=== PATIENT | female | born 1955 | race African-American/Black ===

== ENCOUNTER → 2017-07-27 | Outpatient (CLI) | payer BC, MEDICARE ==
[2015-06-24 10:45] VITALS: BP 122/52
[~2017-07-27] MED LIST: ALPR0.25 PO; ESTR1TAB15 PO; FLUO10CA13 PO; FLUT1DIS3 IH; TIOT18CA IH; TRIA1TAB2 PO
--- NOTE | 2017-07-27 15:46 | KCIC ---
Indication: Increasing shortness of breath. Time of exam 3:24 PM No prior studies are available for comparison. FINDINGS: The heart size is normal. The lungs are clear. No pleural effusion or pneumothorax is identified. The pulmonary vascularity is normal. IMPRESSION: No acute abnormality detected. Electronically signed by: Constantino Anne MD (07/27/2017 3:42 PM) [id number]
== END | disposition home or self-care (01) ==
LOC: KCIC 15:16
PROVIDERS: ATTEND Internal Medicine Critical Care Medicine
DX: J44.9 Chronic obstructive pulmonary disease, unspecified (principal); I50.9 Heart failure, unspecified; R60.9 Edema, unspecified
CPT/HCPCS: 71020

== ENCOUNTER → 2017-10-18 | Outpatient (CLI) | payer BC, MEDICARE ==
[2017-09-22 10:38] VITALS: BP 137/85
[~2017-10-18] MED LIST changes: +AMOX1TAB61 PO; +HYDR-971 PO; +SUCR1TAB PO
--- NOTE | 2017-10-19 10:36 | SLEEP ---
DATE OF STUDY: 10/18/2017 PROCEDURE: Sleep study. ATTENDING PHYSICIAN: Dr. Ruiz The patient is a 61-year-old who weighs 298 pounds with a BMI of 45. The patient had a sleep study performed 8 years ago and was positive for LISA and has been on CPAP and 2 liters of oxygen at night. The patient gained 46 pounds since the last study and another split night study was requested by primary care physician. During the night of study, the patient spent 414 minutes in bed and slept for 313 minutes with a sleep efficiency of 76%. Sleep latency was 21 minutes with a REM latency of 224 minutes. Overall, sleep architecture showed normal stage I sleep, increased stage II sleep, normal slow wave and reduced REM sleep. During the initial diagnostic portion of the study, the patient slept for 123 minutes. During this time, there were 20 obstructive apneas, no mixed or central apneas and there were 85 hypopneas. The patient's apnea-hypopnea index was 51 per hour, supine index 80 per hour and REM sleep was not seen during the diagnostic portion. EKG monitoring revealed normal sinus rhythm, average heart rate was 68 beats per minute. No sustained arrhythmias were observed. No PLM seen. Review of nocturnal oximetry study revealed a mean oxygen saturation of 87% with the lowest of 67%. 69% of time oxygen saturation remained between 80% and 89% and another 30% of time between 70 and 79%. The patient met the criteria for CPAP initiation. It was started at 7 cm water and titrated up to 15 cm water. At the final pressure, the patient slept for 60 minutes. The patient had supine sleep throughout and REM sleep as well. The patient's AHI was reduced to 0 per hour. Oxygen saturations remained above 88% with desaturation in mid 80's during REM part of sleep at the final pressure, but towards the end, the oxygen saturations remained above 90% when patient was out of REM sleep.. The patient used a small size nasal pillow. IMPRESSION: 1. Severe sleep apnea-hypopnea syndrome at an AHI of 51 per hour. 2. Nocturnal hypoxia secondary to obstructive sleep apnea, improved with CPAP. 3. No significant PLMS seen. RECOMMENDATIONS: 1. CPAP at 15 cm water completely eliminated the patient's sleep apnea and should be used on a nightly basis. 2. Follow up in 4-6 weeks to assess compliance with CPAP and to document clinical improvement. 3. Weight loss was strongly advised. 4. Avoid SANITARY AIDE depressants. 5. Caution regarding driving until symptoms of sleep apnea resolve with the use of CPAP. 6. Would recommend having a nocturnal oximetry study at the therapeutic pressure of 15 cm water to assess the need for supplemental oxygen. The patient was noticed to have desaturation during REM sleep even at the final pressure. THOMPSON RINCON MD DR: ADDY/cj JOB#: [id number] / [id number] FILEMON Oconnor
== END | disposition home or self-care (01) ==
LOC: SLPLAB 18:32
PROVIDERS: ATTEND Internal Medicine Critical Care Medicine
DX: G47.33 Obstructive sleep apnea (adult) (pediatric) (principal)
CPT/HCPCS: 95810

== ENCOUNTER 2018-01-14 17:12 | Emergency (ER) | payer BC ==
[2018-01-14 18:17] LABS: ADD MAN DIFF? NO
[2018-01-14 18:18] LABS: BASO # 0.1 x10^3/uL (0.0-0.2); BASO % 1 % (0-3); EOS # 0.4 x10^3/uL (0.0-0.7); EOS % 6 % (0-3); HEMOGLOBIN 14.1 g/dL (12.0-15.5); LYMPH # 1.5 x10^3/uL (1.0-4.8); LYMPH % 21 % (24-48); MEAN CORPUSCULAR HEMOGLOBIN 30 pg (25-35); MEAN CORPUSCULAR HGB CONC 34 g/dL (31-37); MEAN CORPUSCULAR VOLUME 90 fL (79-100); MONO # 0.4 x10^3/uL (0.0-1.1); MONO % 6 % (0-9); NEUT # 4.8 x10^3uL (1.8-7.7); NEUT % 66 % (31-73); PLATELET COUNT 236 x10^3/uL (140-400); RED BLOOD COUNT 4.66 x10^6/uL (3.50-5.40); RED CELL DISTRIBUTION WIDTH 13.3 % (11.5-14.5); WHITE BLOOD COUNT 7.3 x10^3/uL (4.0-11.0)
[2018-01-14 18:20] LABS: BILIRUBIN,URINE NEGATIVE (NEG); CLARITY,URINE CLEAR; COLOR,URINE YELLOW; GLUCOSE,URINE NEGATIVE (NEG); NITRITE,URINE NEGATIVE (NEG); PH,URINE 5.5; PROTEIN,URINE NEGATIVE (NEG-TRACE); UROBILINOGEN,URINE 0.2 mg/dL (0.2 mg/dL)
[2018-01-14 18:29] LABS: BACTERIA,URINE 0 /HPF (0-FEW); RBC,URINE 0 /HPF (0-2); SQUAMOUS EPITHELIAL CELL,UR FEW /LPF; WBC,URINE 0 /HPF (0-4)
[2018-01-14] MEDS ORDERED: CONTRAST GIVEN MC (18:30)
[2018-01-14 18:36] LABS: ANION GAP 7 (6-14); BLOOD UREA NITROGEN 13 mg/dL (7-20); CALCIUM 8.8 mg/dL (8.5-10.1); CARBON DIOXIDE 30 mmol/L (21-32); CHLORIDE 106 mmol/L (98-107); CREATININE 0.8 mg/dL (0.6-1.0); GFR 87.7; GLUCOSE 120 mg/dL (70-99); POTASSIUM 4.3 mmol/L (3.5-5.1); SODIUM 143 mmol/L (136-145)
[2018-01-14 18:42] LABS: ALK PHOS 87 U/L (46-116); ALT (SGPT) 17 U/L (14-59); AST (SGOT) 13 U/L (15-37); DIRECT BILIRUBIN 0.1 mg/dL (0.0-0.2); LIPASE 84 U/L (73-393); TOTAL BILIRUBIN 0.4 mg/dL (0.2-1.0); TOTAL PROTEIN 6.4 g/dL (6.4-8.2)
[2018-01-14 18:45] LABS: TROPONINI < 0.017 ng/mL (0.000-0.055)
[2018-01-14] MEDS: 0.9 % SODIUM CHLORIDE 10 ML DISP.SYRIN. IV (18:47)
[2018-01-14] MEDS: IV NORMAL SALINE 1000ML BAG 1,000 ML IV (18:47)
[2018-01-14] MEDS: ONDANSETRON PF 4 MG/2 ML VIAL. IV (18:47)
[2018-01-14] MEDS: MORPHINE SULFATE 4 MG/ML DISP.SYRIN. IV/SQ (18:49)
[2018-01-14] MEDS: IOHEXOL 300 MG/ML 100ML VIAL. IV (19:19)
== END 2018-01-14 20:27 | disposition home or self-care (01) ==
LOC: ER 17:12
DX: R19.7 Diarrhea, unspecified (principal); R10.32 Left lower quadrant pain; R50.9 Fever, unspecified; R11.0 Nausea; F41.9 Anxiety disorder, unspecified; J44.9 Chronic obstructive pulmonary disease, unspecified; H40.9 Unspecified glaucoma; E78.00 Pure hypercholesterolemia, unspecified; I10 Essential (primary) hypertension; F17.210 Nicotine dependence, cigarettes, uncomplicated; Z90.710 Acquired absence of both cervix and uterus
CPT/HCPCS: 36415; 74177; 80048; 80076; 81001; 83690; 84484; 85025; 93005; 96361; 96374; 96375; 99285-25; J2060; J2270; J2405; J7030; Q9967

== ENCOUNTER 2019-04-26 17:47 | Emergency (ER) | payer BC ==
[~2019-04-26] VITALS: Ht 177.8 cm; Wt 129.3 kg
[~2019-04-26 17:47] MED LIST changes: +DICY10CA3 PO; +DIPH1TAB PO; +HYDR-3164 PO; -HYDR-971 PO; +ONDA4TAB10 PO
[2019-04-26 18:07] VITALS: BP 175/98
--- NOTE | 2019-04-26 18:25 | PHYS DOC ---
Past Medical History Past Medical History: Anxiety, COPD, Gallstones, Glaucoma, High Cholesterol, Hypertension, Other Additional Past Medical Histor: OBESITY (MACY DARBY APRN) Past Surgical History: Hysterectomy, Tonsillectomy (MACY DARBY APRN) Alcohol Use: Rarely Drug Use: None (MACY DARBY APRN) Adult General Chief Complaint Chief Complaint: LOWER EXT PAIN HPI HPI Patient is a 63 year old female with history of COPD, on oxygen 2 L, hypertension, high cholesterol, who presents to the ED today complaining of bilateral lower extremity pain, swelling, redness, symptoms began a week ago, no known injury. Patient states she was sent by urgent care ED to rule out DVT. Denies any fever. Denies any chest pain, denies any recent hospitalization, denies any surgery, denies any long air travel or car travel, denies any new shortness of breath. Denies any personal family history of DVTs. (MACY DARBY APRN) Review of Systems Review of Systems Constitutional: Denies fever or chills [] Eyes: Denies change in visual acuity, redness, or eye pain [] HENT: Denies nasal congestion or sore throat [] Respiratory: Denies cough or shortness of breath [] Cardiovascular: No additional information not addressed in HPI [] GI: Denies abdominal pain, nausea, vomiting, bloody stools or diarrhea [] : Denies dysuria or hematuria [] Musculoskeletal: Reports bilateral lower extremity swelling, redness. Neurologic: Denies headache, focal weakness or sensory changes [] All other systems were reviewed and found to be within normal limits, except as documented in this note. (MACY DARBY APRN) Allergies Allergies Allergies Coded Allergies Type Severity Reaction Last Updated Verified No Known Drug Allergies 09/20/17 No (MARYCHUY LOJA DO) Physical Exam Physical Exam Constitutional: Well developed, well nourished, no acute distress, non-toxic appearance. [] HENT: Normocephalic, atraumatic, bilateral external ears normal, oropharynx moist, no oral exudates, nose normal. [] Eyes: PERRLA, EOMI, conjunctiva normal, no discharge. [] Neck: Normal range of motion, no tenderness, supple, no stridor. [] Cardiovascular:Heart rate regular rhythm, no murmur [] Lungs & Thorax: Bilateral breath sounds clear to auscultation [] Abdomen: Bowel sounds normal, soft, no tenderness, no masses, no pulsatile masses. [] Skin: Warm, dry, no erythema, no rash. [] Back: No tenderness, no CVA tenderness. [] Extremities: No tenderness, no cyanosis, no clubbing, ROM intact, overweight patient, +1 edema noted to bilateral lower extremities, no calf tenderness bilaterally, negative Homans sign bilaterally, trace cellulitis noted on the shins bilaterally starting midway shins on both lower extremities. +2 bilateral pedal pulses. Neurologic: Alert and oriented X 3, normal motor function, normal sensory function, no focal deficits noted. [] Psychologic: Affect normal, judgement normal, mood normal. [] (MACY DARBY APRN) Current Patient Data Vital Signs Vital Signs Date Time Temp Pulse Resp B/P (MAP) Pulse Ox O2 Delivery O2 Flow Rate FiO2 04/26/19 18:07 98.2 74 20 175/98 (123) 93 Nasal Cannula 2.0 98.2 (MARYCHUY LOJA DO) EKG EKG [] (MACY DARBY APRN) Radiology/Procedures Radiology/Procedures [] (MACY DARBY APRN) Course & Med Decision Making Course & Med Decision Making Pertinent Labs and Imaging studies reviewed. (See chart for details) This is a 63-year-old female patient was sent to the ED today for cellulitis and DVT rule out. Tetanus up-to-date, bilateral lower extremities venous Doppler preliminary read is negative. Discharged on clindamycin. Follow-up with PCP in 1-2 weeks. Encouraged to elevate the extremities. (MACY DARBY APRN) Dragon Disclaimer Dragon Disclaimer This electronic medical record was generated, in whole or in part, using a voice recognition dictation system. (MACY DARBY APRN) Departure Departure Impression: Primary Impression: Cellulitis of both lower extremities Additional Impression: Edema, lower extremity Disposition: 01 HOME, SELF-CARE Condition: STABLE Referrals: FILEMON XAVIER (PCP) Follow-up in 1-2 weeks Patient Instructions: Cellulitis, [id number], Edema, [id number] Additional Instructions: You were evaluated in the emergency room, your venous Doppler was negative for DVT/blood clot. You have cellulitis to bilateral lower extremities. We put you on antibiotics, ensure you complete them. Try and elevate your extremities. Scripts Clindamycin Hcl (CLINDAMYCIN HCL) 150 Mg Capsule 3 CAP PO TID, #90 CAP Prov: MERCEDDILEEPMACY APRN 04/26/19 Attending Signature Attending Signature I have reviewed the PA/ENTREPRENEURSHIP PROGRAM DIRECTOR's note and plan of care. I was available for consultation as needed during the patient's visit in the emergency department. I agree with the clinical impression, plan, and disposition. (MARYCHUY LOJA DO) Problem Qualifiers MACY DARBY APRN Apr 26, 2019 18:25 MARYCHUY LOJA DO Apr 26, 2019 22:21
[2019-04-26] MEDS ORDERED: CLIN150C14 PO (19:05)
--- NOTE | 2019-04-26 19:34 | RAD ---
Bilateral lower extremity venous doppler ultrasound History: Bilateral lower extremity pain and burning sensation, redness Comparison: None Findings: Multiple grayscale, color, and duplex spectral analysis sonographic images were acquired of the bilateral lower extremity veins to evaluate for the presence of DVT. There is normal phasicity. Normal compression, color-flow, and augmentation is demonstrated from the bilateral common femoral to the popliteal veins. There is normal color flow of the proximal greater saphenous and profunda femoris veins. There is normal color flow of segments of the calf veins. There is soft tissue edema. Impression: 1. There is no evidence of deep venous thrombosis from the bilateral common femoral to the popliteal veins. Electronically signed by: Maciej Staley MD (04/26/2019 7:31 PM) [facility]
== END 2019-04-26 19:15 | disposition home or self-care (01) ==
LOC: ER 17:47
DX: L03.116 Cellulitis of left lower limb (principal); L03.115 Cellulitis of right lower limb; R60.0 Localized edema; F41.9 Anxiety disorder, unspecified; J44.9 Chronic obstructive pulmonary disease, unspecified; E78.00 Pure hypercholesterolemia, unspecified; I10 Essential (primary) hypertension; E66.9 Obesity, unspecified; Z68.41 Body mass index [BMI] 40.0-44.9, adult; Z90.710 Acquired absence of both cervix and uterus; Z90.89 Acquired absence of other organs
CPT/HCPCS: 93970; 99284

== ENCOUNTER 2019-08-12 20:12 | Emergency (ER) | payer BC ==
[~2019-08-12] VITALS: Ht 180.3 cm; Wt 137.1 kg
[~2019-08-12 20:12] MED LIST changes: +CLIN150C14 PO
[2019-08-12] MEDS ORDERED: IV NORMAL SALINE 500ML BAG 500 ML IV ONE (21:00)
[2019-08-12 21:09] LABS: BASO # 0.1 x10^3/uL (0.0-0.2); BASO % 1 % (0-3); EOS # 0.2 x10^3/uL (0.0-0.7); EOS % 3 % (0-3); HEMATOCRIT 43.6 % (36.0-47.0); HEMOGLOBIN 14.6 g/dL (12.0-15.5); LYMPH # 2.4 x10^3/uL (1.0-4.8); LYMPH % 35 % (24-48); MEAN CORPUSCULAR HEMOGLOBIN 30 pg (25-35); MEAN CORPUSCULAR HGB CONC 34 g/dL (31-37); MEAN CORPUSCULAR VOLUME 89 fL (79-100); MONO # 0.5 x10^3/uL (0.0-1.1); MONO % 8 % (0-9); NEUT # 3.8 x10^3/uL (1.8-7.7); NEUT % 54 % (31-73); PLATELET COUNT 269 x10^3/uL (140-400); RED BLOOD COUNT 4.92 x10^6/uL (3.50-5.40); RED CELL DISTRIBUTION WIDTH 13.1 % (11.5-14.5)
[2019-08-12 21:17] LABS: CALCIUM 9.8 mg/dL (8.5-10.1); CREATININE 1.1 mg/dL (0.6-1.0); POTASSIUM 3.9 mmol/L (3.5-5.1)
[2019-08-12 21:23] LABS: ALBUMIN 3.4 g/dL (3.4-5.0); ALBUMIN/GLOBULIN RATIO 0.9 (1.0-1.7); TOTAL BILIRUBIN 0.5 mg/dL (0.2-1.0); TOTAL PROTEIN 7.4 g/dL (6.4-8.2)
[2019-08-12 21:52] LABS: BILIRUBIN,URINE NEGATIVE (NEG); CLARITY,URINE CLEAR; COLOR,URINE YELLOW; NITRITE,URINE NEGATIVE (NEG); PH,URINE 5.5; PROTEIN,URINE NEGATIVE (NEG-TRACE); UROBILINOGEN,URINE 0.2 mg/dL (0.2 mg/dL)
[2019-08-12 22:00] VITALS: BP 134/62
[2019-08-12 22:04] LABS: BACTERIA,URINE FEW /HPF (0-FEW); RBC,URINE 0 /HPF (0-2); SQUAMOUS EPITHELIAL CELL,UR OCC /LPF; WBC,URINE OCC /HPF (0-4)
--- NOTE | 2019-08-12 22:18 | PHYS DOC ---
Past Medical History Past Medical History: Anxiety, CHF, COPD, Gallstones, Glaucoma, High Cholesterol, Hypertension, Other Additional Past Medical Histor: OBESITY Past Surgical History: Hysterectomy, Tonsillectomy Alcohol Use: Rarely Drug Use: None Adult General Chief Complaint Chief Complaint: HYPOTENSION HPI HPI 63-year-old female with multiple medical problems presents with a several-day history of generalized weakness. She states her blood pressure was low at home tonight. She denies any fever chills or sweats. She's had no nausea or vomiting. She denies any polyuria or polydipsia. She denies any chest pain shortness of breath or dyspnea on exertion. She denies any headache or lateralizing neurologic weakness. She states that she does not exacerbate her symptoms by getting up quickly.[] Review of Systems Review of Systems Constitutional: Reports feeling weak, Denies fever or chills [] Eyes: Denies change in visual acuity, redness, or eye pain [] HENT: Denies nasal congestion or sore throat [] Respiratory: Denies cough or shortness of breath [] Cardiovascular: No additional information not addressed in HPI [] GI: Denies abdominal pain, nausea, vomiting, bloody stools or diarrhea [] : Denies dysuria or hematuria [] Musculoskeletal: Denies back pain or joint pain [] Integument: Denies rash or skin lesions [] Neurologic: Denies headache, focal weakness or sensory changes [] Endocrine: Denies polyuria or polydipsia [] All other systems were reviewed and found to be within normal limits, except as documented in this note. Current Medications Current Medications Current Medications Medications (Trade) Dose Ordered Sig/Juan Start Time Stop Time Status Last Admin Dose Admin Sodium Chloride 500 ml @ 500 mls/hr 1X ONCE 08/12/19 21:00 08/12/19 21:59 DC 08/12/19 21:08 500 MLS/HR Allergies Allergies Allergies Coded Allergies Type Severity Reaction Last Updated Verified No Known Drug Allergies 09/20/17 No Physical Exam Physical Exam Constitutional: Well developed, well nourished, no acute distress, non-toxic appearance. [] HENT: Normocephalic, atraumatic, bilateral external ears normal, oropharynx moist, no oral exudates, nose normal. [] Eyes: PERRLA, EOMI, conjunctiva normal, no discharge. [] Neck: Normal range of motion, no tenderness, supple, no stridor. [] Cardiovascular:Heart rate regular rhythm, no murmur [] Lungs & Thorax: Bilateral breath sounds clear to auscultation [] Abdomen: Bowel sounds normal, soft, no tenderness, no masses, no pulsatile masses. [] Skin: Warm, dry, no erythema, no rash. [] Back: No tenderness, no CVA tenderness. [] Extremities: No tenderness, no cyanosis, no clubbing, ROM intact, no edema. [] Neurologic: Alert and oriented X 3, normal motor function, normal sensory function, no focal deficits noted. [] Psychologic: Affect normal, judgement normal, mood normal. [] Current Patient Data Vital Signs Vital Signs Date Time Temp Pulse Resp B/P (MAP) Pulse Ox O2 Delivery O2 Flow Rate FiO2 08/12/19 21:30 61 119/59 (79) 99 Nasal Cannula 2.0 08/12/19 20:15 98.2 20 98.2 Lab Values Laboratory Tests Test 08/12/19 21:00 08/12/19 21:40 White Blood Count 7.0 x10^3/uL (4.0-11.0) Red Blood Count 4.92 x10^6/uL (3.50-5.40) Hemoglobin 14.6 g/dL (12.0-15.5) Hematocrit 43.6 % (36.0-47.0) Mean Corpuscular Volume 89 fL (79-100) Mean Corpuscular Hemoglobin 30 pg (25-35) Mean Corpuscular Hemoglobin Concent 34 g/dL (31-37) Red Cell Distribution Width 13.1 % (11.5-14.5) Platelet Count 269 x10^3/uL (140-400) Neutrophils (%) (Auto) 54 % (31-73) Lymphocytes (%) (Auto) 35 % (24-48) Monocytes (%) (Auto) 8 % (0-9) Eosinophils (%) (Auto) 3 % (0-3) Basophils (%) (Auto) 1 % (0-3) Neutrophils # (Auto) 3.8 x10^3/uL (1.8-7.7) Lymphocytes # (Auto) 2.4 x10^3/uL (1.0-4.8) Monocytes # (Auto) 0.5 x10^3/uL (0.0-1.1) Eosinophils # (Auto) 0.2 x10^3/uL (0.0-0.7) Basophils # (Auto) 0.1 x10^3/uL (0.0-0.2) Sodium Level 140 mmol/L (136-145) Potassium Level 3.9 mmol/L (3.5-5.1) Chloride Level 103 mmol/L (98-107) Carbon Dioxide Level 33 mmol/L (21-32) H Anion Gap 4 (6-14) L Blood Urea Nitrogen 23 mg/dL (7-20) H Creatinine 1.1 mg/dL (0.6-1.0) H Estimated GFR (Cockcroft-Gault) 50.0 BUN/Creatinine Ratio 21 (6-20) H Glucose Level 117 mg/dL (70-99) H Calcium Level 9.8 mg/dL (8.5-10.1) Total Bilirubin 0.5 mg/dL (0.2-1.0) Aspartate Amino Transferase (AST) 16 U/L (15-37) Alanine Aminotransferase (ALT) 18 U/L (14-59) Alkaline Phosphatase 82 U/L (46-116) Troponin I Quantitative < 0.017 ng/mL (0.000-0.055) Total Protein 7.4 g/dL (6.4-8.2) Albumin 3.4 g/dL (3.4-5.0) Albumin/Globulin Ratio 0.9 (1.0-1.7) L Urine Color Yellow Urine Clarity Clear Urine pH 5.5 Urine Specific Sears 1.010 Urine Protein Negative mg/dL (NEG-TRACE) Urine Glucose (UA) Negative mg/dL (NEG) Urine Ketones (Stick) Negative mg/dL (NEG) Urine Blood Negative (NEG) Urine Nitrite Negative (NEG) Urine Bilirubin Negative (NEG) Urine Urobilinogen Dipstick 0.2 mg/dL (0.2 mg/dL) Urine Leukocyte Esterase Negative (NEG) Urine RBC 0 /HPF (0-2) Urine WBC Occ /HPF (0-4) Urine Squamous Epithelial Cells Occ /LPF Urine Bacteria Few /HPF (0-FEW) Urine Mucus Slight /LPF Laboratory Tests 08/12/19 21:00 Laboratory Tests 08/12/19 21:00 EKG EKG EKG: Normal sinus rhythm rate of [address]-T changes[] Radiology/Procedures Radiology/Procedures [] Course & Med Decision Making Course & Med Decision Making Pertinent Labs and Imaging studies reviewed. (See chart for details) [ED course: Evaluation reveals a 63-year-old female that's generally weak. Her orthostatic blood pressures were completely normal. Her laboratory studies including a urinalysis looked great. Her EKG did not show any evidence of ischemia. I reassured the patient that I thought she would be safe for discharge home. I've encouraged her to follow with her primary care physician in the near future.] Dragon Disclaimer Dragon Disclaimer This electronic medical record was generated, in whole or in part, using a voice recognition dictation system. Departure Departure Impression: Primary Impression: Generalized weakness Disposition: 01 HOME, SELF-CARE Condition: STABLE Referrals: FILEMON XAVIER (PCP) Patient Instructions: Weakness Additional Instructions: Return to the emergency department with any new or concerning symptoms ANTONIO LI DO Aug 12, 2019 22:18
--- NOTE | 2019-08-13 06:50 | EKG ---
[facility] [address] [place] [address] Test Date: 2019-08-12 Test Time: 21:00:44 Pat Name: KRUNAL HENDERSON Department: Room: Gender: F Server Service Assistant: : 1955 Requested By: ANTONIO LI Order Number: [id number] Reading MD: Measurements Intervals [place] Rate: 62 P: IN: QRS: -2 QRSD: 84 T: 12 QT: 430 QTc: 438 Interpretive Statements ATRIAL FIBRILLATION LEFTWARD AXIS ABNORMAL ECG No previous ECG available for comparison
== END 2019-08-12 22:35 | disposition home or self-care (01) ==
LOC: ER 20:12
DX: R53.1 Weakness (principal); F41.9 Anxiety disorder, unspecified; J44.9 Chronic obstructive pulmonary disease, unspecified; I11.0 Hypertensive heart disease with heart failure; I50.9 Heart failure, unspecified; E66.9 Obesity, unspecified; Z68.41 Body mass index [BMI] 40.0-44.9, adult
CPT/HCPCS: 36415; 80053; 81001; 84484; 85025; 93005; 99285; J7040

== ENCOUNTER → 2020-02-05 | Outpatient (CLI) | payer MEDICARE ==
[2019-10-17 11:21] VITALS: BP 125/65
[~2020-02-05] MED LIST changes: +OLME40TA12 PO; +VENTOLIN HFA18 GM INH
--- NOTE | 2020-02-05 07:24 | RAD ---
Examination: Ultrasound abdomen limited HISTORY: History of right upper quadrant abdominal pain COMPARISON: None available FINDINGS: The pancreas, IVC, aorta are not well-visualized due to bowel gas. The liver length measures 20.8 cm.Echogenicity identified within the gallbladder likely cholelithiasis. The right kidney measures 12.9 cm in length. IMPRESSION: 1. Cholelithiasis. 2. Hepatomegaly. 3. Examination limited due to bowel gas. Electronically signed by: Nicola Mendiola MD (02/05/2020 7:21 AM) [id number]
== END | disposition home or self-care (01) ==
LOC: US 07:09
PROVIDERS: ATTEND Emergency Medicine
DX: K80.20 Calculus of gallbladder without cholecystitis without obstruction (principal); R16.0 Hepatomegaly, not elsewhere classified
CPT/HCPCS: 76705

== ENCOUNTER 2021-02-15 15:38 | Emergency (ER) | payer MEDICARE ==
[~2021-02-15] VITALS: Ht 182.9 cm; Wt 136.0 kg
[~2021-02-15 15:38] MED LIST changes: -CLIN150C14 PO; +CLIN150C15 PO; +ESTR-113 PO; -ESTR1TAB15 PO
[2021-02-15] MEDS ORDERED: methylPREDNISolone SOD SUCC PF 125 MG/2 ML VIAL. IV ONE (16:15)
--- NOTE | 2021-02-15 16:23 | RAD ---
Exam Date: 02/15/2021 4:07 PM XR CHEST 1V Indication: Reason: SOA. low O2 levels / Spl. Instructions: / History: Comparison: October 15, 2019 FINDINGS/ IMPRESSION: The cardiac silhouette and pulmonary vasculature are within normal limits. There is no focal consolidation, pleural effusion or pneumothorax. The visualized osseous structures are intact. Electronically signed by: Carrington Acosta MD (02/15/2021 4:20 PM) [id number]
[2021-02-15] MEDS ORDERED: IPRATRPIUM/ALBUTEROL 0.5/2.5MG 3 ML NEBU. NEB ONE (16:30)
[2021-02-15 16:36] LABS: BASO # 0.1 x10^3/uL (0.0-0.2); BASO % 1 % (0-3); EOS # 0.4 x10^3/uL (0.0-0.7); EOS % 5 % (0-3); HEMATOCRIT 42.1 % (36.0-47.0); HEMOGLOBIN 13.8 g/dL (12.0-15.5); LYMPH # 1.5 x10^3/uL (1.0-4.8); LYMPH % 18 % (24-48); MEAN CORPUSCULAR HEMOGLOBIN 30 pg (25-35); MEAN CORPUSCULAR HGB CONC 33 g/dL (31-37); MEAN CORPUSCULAR VOLUME 90 fL (79-100); MONO # 0.6 x10^3/uL (0.0-1.1); MONO % 7 % (0-9); NEUT # 5.9 x10^3/uL (1.8-7.7); NEUT % 70 % (31-73); PLATELET COUNT 348 x10^3/uL (140-400); RED BLOOD COUNT 4.68 x10^6/uL (3.50-5.40); RED CELL DISTRIBUTION WIDTH 14.3 % (11.5-14.5); WHITE BLOOD COUNT 8.5 x10^3/uL (4.0-11.0)
[2021-02-15 16:51] LABS: CALCIUM 8.7 mg/dL (8.5-10.1); CREATININE 0.8 mg/dL (0.6-1.0); GFR 71.8
[2021-02-15 17:00] LABS: ALBUMIN 3.2 g/dL (3.4-5.0); ALBUMIN/GLOBULIN RATIO 0.8 (1.0-1.7); TOTAL BILIRUBIN 0.4 mg/dL (0.2-1.0); TOTAL PROTEIN 7.4 g/dL (6.4-8.2)
--- NOTE | 2021-02-15 17:08 | PHYS DOC ---
Past Medical History Past Medical History: Anxiety, CHF, COPD, Gallstones, Glaucoma, High Cholesterol, Hypertension, Other Additional Past Medical Histor: OBESITY Past Surgical History: Hysterectomy, Tonsillectomy Smoking Status: Former Smoker Additional Information: "I SMOKED FOR 2 YEARS." Alcohol Use: None Drug Use: None General Adult EDM: Chief Complaint: SHORTNESS OF BREATH HPI: HPI: Patient is a 65 year old female who presented to ER with 3 to 4-day history of trouble breathing. Patient has history of COPD, she is on 2 L of oxygen at home all the time. Patient also have breathing treatment at home as well. Patient denies any fever, no chest pain. Patient had nonproductive cough. Patient says she could not keep her oxygen saturation up at home so she went to urgent care who then sent her here for evaluation. Patient had her Covid vaccine and the last dose was at the end of last month. She denies any history of Covid infection Review of Systems: Review of Systems: Constitutional: Denies fever or chills. [] Eyes: Denies change in visual acuity. [] HENT: Denies nasal congestion or sore throat. [] Respiratory: Positive for nonproductive cough and trouble breathing. Cardiovascular: Denies chest pain or edema. [] GI: Denies abdominal pain, nausea, vomiting, bloody stools or diarrhea. [] : Denies dysuria. [] Musculoskeletal: Denies back pain or joint pain. [] Integument: Denies rash. [] Neurologic: Denies headache, focal weakness or sensory changes. [] Endocrine: Denies polyuria or polydipsia. [] Lymphatic: Denies swollen glands. [] Psychiatric: Denies depression or anxiety. [] Heart Score: C/O Chest Pain: N/A Risk Factors: Risk Factors: DM, Current or recent (<one month) smoker, HTN, HLP, family history of CAD, obesity. Risk Scores: Score 0 - 3: 2.5% MACE over next 6 weeks - Discharge Home Score 4 - 6: 20.3% MACE over next 6 weeks - Admit for Clinical Observation Score 7 - 10: 72.7% MACE over next 6 weeks - Early Invasive Strategies Current Medications: Current Medications Medications (Trade) Dose Ordered Sig/Juan Start Time Stop Time Status Last Admin Dose Admin Albuterol/ Ipratropium (Duoneb) 3 ml 1X ONCE 02/15/21 16:30 02/15/21 16:33 DC Methylprednisolone Sodium Succinate (SOLU-Medrol 125MG VIAL) 125 mg 1X ONCE 02/15/21 16:15 02/15/21 16:16 DC 02/15/21 16:33 125 MG Allergies: Allergies: Allergies Coded Allergies Type Severity Reaction Last Updated Verified No Known Drug Allergies 09/20/17 No Physical Exam: PE: Constitutional: Well developed, well nourished, no acute distress, non-toxic appearance. [] HENT: Normocephalic, atraumatic, bilateral external ears normal, oropharynx moist, no oral exudates, nose normal. [] Eyes: PERRLA, EOMI, conjunctiva normal, no discharge. [] Neck: Normal range of motion, no tenderness, supple, no stridor. [] Cardiovascular:Heart rate regular rhythm, no murmur [] Lungs & Thorax: Bilateral breath sounds clear to auscultation. no respiratory distress. Abdomen: Bowel sounds normal, soft, no tenderness, no masses, no pulsatile ma sses. [] Skin: Warm, dry, no erythema, no rash. [] Back: No tenderness, no CVA tenderness. [] Extremities: No tenderness, no cyanosis, no clubbing, ROM intact, no edema. [] Neurologic: Alert and oriented X 3, normal motor function, normal sensory function, no focal deficits noted. [] Psychologic: Affect normal, judgement normal, mood normal. [] Current Patient Data: Labs: Laboratory Tests Test 02/15/21 16:20 White Blood Count 8.5 x10^3/uL (4.0-11.0) Red Blood Count 4.68 x10^6/uL (3.50-5.40) Hemoglobin 13.8 g/dL (12.0-15.5) Hematocrit 42.1 % (36.0-47.0) Mean Corpuscular Volume 90 fL (79-100) Mean Corpuscular Hemoglobin 30 pg (25-35) Mean Corpuscular Hemoglobin Concent 33 g/dL (31-37) Red Cell Distribution Width 14.3 % (11.5-14.5) Platelet Count 348 x10^3/uL (140-400) Neutrophils (%) (Auto) 70 % (31-73) Lymphocytes (%) (Auto) 18 % (24-48) L Monocytes (%) (Auto) 7 % (0-9) Eosinophils (%) (Auto) 5 % (0-3) H Basophils (%) (Auto) 1 % (0-3) Neutrophils # (Auto) 5.9 x10^3/uL (1.8-7.7) Lymphocytes # (Auto) 1.5 x10^3/uL (1.0-4.8) Monocytes # (Auto) 0.6 x10^3/uL (0.0-1.1) Eosinophils # (Auto) 0.4 x10^3/uL (0.0-0.7) Basophils # (Auto) 0.1 x10^3/uL (0.0-0.2) Sodium Level 142 mmol/L (136-145) Potassium Level 4.0 mmol/L (3.5-5.1) Chloride Level 104 mmol/L (98-107) Carbon Dioxide Level 29 mmol/L (21-32) Anion Gap 9 (6-14) Blood Urea Nitrogen 16 mg/dL (7-20) Creatinine 0.8 mg/dL (0.6-1.0) Estimated GFR (Cockcroft-Gault) 71.8 BUN/Creatinine Ratio 20 (6-20) Glucose Level 110 mg/dL (70-99) H Calcium Level 8.7 mg/dL (8.5-10.1) Magnesium Level 2.0 mg/dL (1.8-2.4) Total Bilirubin 0.4 mg/dL (0.2-1.0) Aspartate Amino Transferase (AST) 29 U/L (15-37) Alanine Aminotransferase (ALT) 33 U/L (14-59) Alkaline Phosphatase 84 U/L (46-116) Troponin I Quantitative < 0.017 ng/mL (0.000-0.055) LS-Hbx-T-Type Natriuretic Peptide 274 pg/mL (0-124) H Total Protein 7.4 g/dL (6.4-8.2) Albumin 3.2 g/dL (3.4-5.0) L Albumin/Globulin Ratio 0.8 (1.0-1.7) L Laboratory Tests 02/15/21 16:20 Laboratory Tests 02/15/21 16:20 Vital Signs: Vital Signs Date Time Temp Pulse Resp B/P (MAP) Pulse Ox O2 Delivery O2 Flow Rate FiO2 02/15/21 15:52 98.2 90 12 111/74 (86) 96 Nasal Cannula 3.0 98.2 EKG: EKG: [] Radiology/Procedures: Radiology/Procedures: [][facility] [address] [place] [address] IMAGING REPORT Signed PATIENT: KRUNAL HENDERSON LACCOUNT: [id number] : 1955 LOCATION: ER AGE: 65 SEX: F EXAM STATUS: REG ER ORD. PHYSICIAN: HALLIE JOHNSTON DO REASON: SOA. low O2 levels PROCEDURE: CHEST AP ONLY Exam Date: 02/15/2021 4:07 PM XR CHEST 1V Indication: Reason: SOA. low O2 levels / Spl. Instructions: / History: Comparison: October 15, 2019 FINDINGS/ IMPRESSION: The cardiac silhouette and pulmonary vasculature are within normal limits. There is no focal consolidation, pleural effusion or pneumothorax. The visualized osseous structures are intact. Electronically signed by: Dexter Acosta MD (02/15/2021 4:20 PM) [id number] DICTATED and SIGNED BY: DEXTER ACOSTA MD DATE: 02/15/21 [id number] Course & Med Decision Making: Course & Med Decision Making Pertinent Labs and Imaging studies reviewed. (See chart for details) Patient is a 65-year-old female who presented to ER due to trouble breathing, she has history of COPD, she is on 2 L oxygen at home all the time. Patient denies any chest pain. Work-up in ER included lab work, chest x-ray and EKG did not show any acute problem. Her oxygen saturation was 96% on 3 L. Patient was given DuoNeb treatment in the ER, she already have oxygen at home, she will need to increase her oxygen to 3 L as needed. Patient will be discharged home with prednisone for her COPD. sHe was instructed to follow-up with her family physician for reevaluation this week. Patient was amenable to plan of care. Diamond Disclaimer: Dragezra Disclaimer: This electronic medical record was generated, in whole or in part, using a voice recognition dictation system. Departure Departure Impression: Primary Impression: COPD exacerbation Disposition: 01 DC HOME SELF CARE/HOMELESS Condition: IMPROVED Referrals: FILEMON XAVIER (PCP) fOLLOW UP WITH YOUR DOCTOR THIS WEEK FOR REEVALUATION Patient Instructions: Chronic Obstructive Pulmonary Disease Exacerbation Additional Instructions: Thank you for visiting our Emergency Department. We appreciate you trusting us with your care. If any additional problems come up don't hesitate to return to visit us. Please follow up with your primary care provider so they can plan additional care if needed and know about the problem that you had. If symptoms worsen come back to the Emergency Department. Any concerning symptoms that start such as chest pain, shortness of air, weakness or numbness on one side of the body, running high fevers or any other concerning symptoms return to the ER. Scripts Prednisone (PREDNISONE) 20 Mg Tablet 1 TAB PO DAILY, #7 TAB Prov: HALLIE JOHNSTON DO 02/15/21 HALLIE JOHNSTON DO Feb 15, 2021 17:08
[2021-02-15] MEDS ORDERED: PRED20TA PO (17:57)
[2021-02-15 18:15] VITALS: BP 164/71
--- NOTE | 2021-02-15 19:10 | EKG ---
[facility] [address] [place] [address] Test Date: 2021-02-15 Test Time: 16:28:28 Pat Name: KRUNAL HENDERSON Department: Room: Gender: F Staffing Director: : 1955 Requested By: HALLIE JOHNSTON Order Number: [id number] Reading MD: Measurements Intervals [place] Rate: 82 P: 7 DE: 184 QRS: -15 QRSD: 80 T: 20 QT: 400 QTc: 471 Interpretive Statements SINUS RHYTHM LEFTWARD AXIS OTHERWISE NORMAL ECG RI6.02 No previous ECG available for comparison
== END 2021-02-15 18:45 | disposition home or self-care (01) ==
LOC: ER 15:38
DX: J44.1 Chronic obstructive pulmonary disease with (acute) exacerbation (principal); R05 Cough; F41.9 Anxiety disorder, unspecified; I11.0 Hypertensive heart disease with heart failure; I50.9 Heart failure, unspecified; E78.00 Pure hypercholesterolemia, unspecified; F17.200 Nicotine dependence, unspecified, uncomplicated; E66.8 Other obesity; Z90.710 Acquired absence of both cervix and uterus; Z68.41 Body mass index [BMI] 40.0-44.9, adult
CPT/HCPCS: 36415; 71045; 80053; 83735; 83880; 84484; 85025; 93005; 94640; 96374; 99285; J2930

== ENCOUNTER 2022-03-10 18:57 | Inpatient (IN) | payer MEDICARE ==
[~2022-03-10] VITALS: Ht 152.4 cm; Wt 136.1 kg
[~2022-03-10 18:57] MED LIST changes: -CLIN150C15 PO; +CLIN150C16 PO; +PRED20TA PO
[2022-03-10 19:19] LABS: BASO # 0.1 x10^3/uL (0.0-0.2); BASO % 1 % (0-3); EOS # 0.3 x10^3/uL (0.0-0.7); EOS % 5 % (0-3); HEMATOCRIT 46.3 % (36.0-47.0); HEMOGLOBIN 15.4 g/dL (12.0-15.5); LYMPH % 26 % (24-48); MEAN CORPUSCULAR HEMOGLOBIN 30 pg (25-35); MEAN CORPUSCULAR HGB CONC 33 g/dL (31-37); MEAN CORPUSCULAR VOLUME 91 fL (79-100); MONO # 0.8 x10^3/uL (0.0-1.1); MONO % 10 % (0-9); NEUT # 4.3 x10^3/uL (1.8-7.7); NEUT % 58 % (31-73); PLATELET COUNT 290 x10^3/uL (140-400); RED BLOOD COUNT 5.07 x10^6/uL (3.50-5.40); WHITE BLOOD COUNT 7.5 x10^3/uL (4.0-11.0)
--- NOTE | 2022-03-10 19:41 | RAD ---
EXAMINATION: Chest radiograph. VIEWS: Single AP view of the chest COMPARISON: 02/15/2021 INDICATION:66 years, Female, shortness of breath. FINDINGS: Normal cardiomediastinal silhouette. No focal consolidation. No pleural effusion or pneumothorax. No acute osseous process. IMPRESSION: No acute cardiopulmonary process. Electronically signed by: Chuckie Alfonso DO (03/10/2022 7:39 PM) [facility]
[2022-03-10 19:54] LABS: CALCIUM 8.8 mg/dL (8.5-10.1); GFR 55.3
[2022-03-10 20:00] LABS: ALBUMIN 3.4 g/dL (3.4-5.0); ALBUMIN/GLOBULIN RATIO 0.9 (1.0-1.7); TOTAL BILIRUBIN 0.3 mg/dL (0.2-1.0); TOTAL PROTEIN 7.3 g/dL (6.4-8.2)
--- NOTE | 2022-03-10 20:15 | EKG ---
[facility] [address] [place] [address] Test Date: 2022-03-10 Test Time: 19:15:14 Pat Name: KRUNAL MARSHALL Department: Room: Gender: F [employer] Foreman: : 1955 Requested By: KIRILL CONWAY Order Number: [id number] Reading MD: Duncan Bains Measurements Intervals [place] Rate: 86 P: 28 MI: 206 QRS: -13 QRSD: 78 T: 36 QT: 362 QTc: 436 Interpretive Statements SINUS RHYTHM LEFTWARD AXIS NO SPECIFIC ECG ABNORMALITIES Electronically Signed On 03-11-2022 18:02:12 CDT by Duncan Bains
[2022-03-10] MEDS ORDERED: ALBUTEROL SULFATE 2.5 MG/3 ML NEBU. NEB ONE (21:30)
[2022-03-10] MEDS ORDERED: IOHEXOL 350 MG/ML 100 ML VIAL. IV ONE (22:00)
--- NOTE | 2022-03-10 22:02 | RAD ---
Exam: CT head INDICATION: Stroke TECHNIQUE: Sequential axial images through the head were obtained without the administration of IV co ntrast. Exposure: One or more of the following in the visualized dose reduction techniques were utilized for this examination: 1. Automated exposure control 2. Adjustment of the MA and/or KV according to patient size 3. Use of iterative of reconstructive technique Comparisons: 09/20/2017 FINDINGS: No focal parenchymal lesion or hemorrhage is identified. There is no midline shift or sulcal effaceme nt. Mild patchy hypodensity in the periventricular white matter. No acute vascular territory infarction i s identified. Miranda-white distinction is preserved. The ventricular system is within normal limits without compression hydrocephalus. The basal cisterns are well maintained. The visualized portions of the paranasal sinuses and mastoid air cells are well-pneumatized. No acute fractures. Stable appearance of the right globe. IMPRESSION: No acute intracranial abnormality. Electronically signed by: Peterson Hill MD (03/10/2022 9:59 PM) [facility]
[2022-03-10] MEDS ORDERED: CONTRAST GIVEN. MC PRN (22:15)
--- NOTE | 2022-03-10 22:31 | RAD ---
CTA Chest with contrast: Clinical History: Reason: SOB;OMNI 350,100ML / Spl. Instructions: / History: Shortness of breath. Axial helical images of the chest were obtained after the administration of 100 cc of IV Isovue-370 a nd timed appropriately for a pulmonary arterial study. Conventional axial reconstruction was perform ed in addition to coronal, sagittal and bilateral oblique MIP (maximum intensity projection). This s tudy was ordered to detect possible pulmonary embolism. There are no filling defects to suggest pulmonary embolism. The more peripheral subsegmental pulmonary arteries are not well opacified limiting our sensitivity f or small peripheral pulmonary emboli. The lungs and pleural margins are clear. There is no mediastinal or hilar lymphadenopathy. The thoracic aorta appears normal. There is a stone in the gallbladder. Impression: 1. No evidence of pulmonary embolism. 2. No significant findings. PQRS Compliance Statement: One or more of the following individualized dose reduction techniques were utilized for this examinat ion: 1. Automated exposure control 2. Adjustment of the mA and/or kV according to patient size 3. Use of iterative reconstruction technique Electronically signed by: Naresh Art III, MD (03/10/2022 10:28 PM) [facility]
[2022-03-10] MEDS ORDERED: methylPREDNISolone SOD SUCC PF 125 MG/2 ML VIAL. IV ONE (23:15)
[2022-03-10] MEDS ORDERED: AZITHROMYCIN 250 MG TABLET. PO ONE (23:15)
[2022-03-10 23:35] LABS: BASE EXCESS COOX 3 mmol/L (-3-3); HCO3 COOX 28 mmol/L (21-28); METHEMOGLOBIN 0.3 % (0.0-1.9); OXYHEMOGLOBIN 96.7 %; PCO2 COOX 43 mmHg (35-46); PO2 COOX 95 mmHg (65-108); SAT O2 COOX 97 % (92-99)
--- NOTE | 2022-03-10 23:55 | PHYS DOC ---
Past Medical History Past Medical History: Anxiety, CHF, COPD, Gallstones, Glaucoma, High Cholesterol, Hypertension, Other Additional Past Medical Histor: SLEEP APNEA; RIGHT EYE BLINDNESS Past Surgical History: Tonsillectomy Additional Past Surgical Histo: EYE SURGERY; Smoking Status: Never Smoker Alcohol Use: Rarely Drug Use: None General Adult EDM: Chief Complaint: Palpitations HPI: HPI: Patient is a 66 year old female with a history of COPD comes in with progressive shortness of breath over the last week. Patient went to her primary care physician and was evaluated and was sent to the ER for further evaluation. Patient denies any chest pain. Sister was at the bedside states that she has been acting more confused. Denies any nausea or vomiting Review of Systems: Review of Systems: Constitutional: Increased lethargy denies fever or chills. [] Eyes: Denies change in visual acuity. [] HENT: Denies nasal congestion or sore throat. [] Respiratory: Shortness of breath denies cough Cardiovascular: Dyspnea on exertion denies chest pain or edema. [] GI: Denies abdominal pain, nausea, vomiting, bloody stools or diarrhea. [] : Denies dysuria. [] Musculoskeletal: Denies back pain or joint pain. [] Integument: Denies rash. [] Neurologic: Denies headache, focal weakness or sensory changes. [] Endocrine: Denies polyuria or polydipsia. [] Lymphatic: Denies swollen glands. [] Psychiatric: Denies depression or anxiety. [] Heart Score: C/O Chest Pain: No Risk Factors: Risk Factors: DM, Current or recent (<one month) smoker, HTN, HLP, family history of CAD, obesity. Risk Scores: Score 0 - 3: 2.5% MACE over next 6 weeks - Discharge Home Score 4 - 6: 20.3% MACE over next 6 weeks - Admit for Clinical Observation Score 7 - 10: 72.7% MACE over next 6 weeks - Early Invasive Strategies Current Medications: Current Medications Medications (Trade) Dose Ordered Sig/Juan Start Time Stop Time Status Last Admin Dose Admin Albuterol Sulfate (Ventolin Neb Soln) 2.5 mg 1X ONCE 03/10/22 21:30 03/10/22 21:31 DC 03/10/22 22:50 2.5 MG Azithromycin (Zithromax) 500 mg 1X ONCE 03/10/22 23:15 03/10/22 23:16 DC 03/10/22 23:17 500 MG Info (CONTRAST GIVEN -- Rx MONITORING) 1 each PRN DAILY PRN 03/10/22 22:15 03/12/22 22:14 Iohexol (Omnipaque 350 Mg/ml) 100 ml 1X ONCE 03/10/22 22:00 03/10/22 22:01 DC Methylprednisolone Sodium Succinate (SOLU-Medrol 125MG VIAL) 125 mg 1X ONCE 03/10/22 23:15 03/10/22 23:16 DC 03/10/22 23:17 125 MG Allergies: Allergies: Allergies Coded Allergies Type Severity Reaction Last Updated Verified No Known Drug Allergies 03/10/22 No Physical Exam: PE: Constitutional: Well developed, well nourished, no acute distress, non-toxic appearance. [] HENT: Normocephalic, atraumatic, bilateral external ears normal, oropharynx moist, no oral exudates, nose normal. [] Eyes: PERRLA, EOMI, conjunctiva normal, no discharge. [] Neck: Normal range of motion, no tenderness, supple, no stridor. [] Cardiovascular:Heart rate regular rhythm, no murmur [] Lungs & Thorax: Bilateral breath sounds clear to auscultation [] Abdomen: Bowel sounds normal, soft, no tenderness, no masses, no pulsatile masses. [] Skin: Warm, dry, no erythema, no rash. [] Back: No tenderness, no CVA tenderness. [] Extremities: No tenderness, no cyanosis, no clubbing, ROM intact, no edema. [] Neurologic: Alert and oriented X 3, normal motor function, normal sensory function, no focal deficits noted. [] Psychologic: Affect normal, judgement normal, mood normal. [] Current Patient Data: Labs: Laboratory Tests Test 03/10/22 19:10 03/10/22 23:02 White Blood Count 7.5 x10^3/uL (4.0-11.0) Red Blood Count 5.07 x10^6/uL (3.50-5.40) Hemoglobin 15.4 g/dL (12.0-15.5) Hematocrit 46.3 % (36.0-47.0) Mean Corpuscular Volume 91 fL (79-100) Mean Corpuscular Hemoglobin 30 pg (25-35) Mean Corpuscular Hemoglobin Concent 33 g/dL (31-37) Red Cell Distribution Width 13.0 % (11.5-14.5) Platelet Count 290 x10^3/uL (140-400) Neutrophils (%) (Auto) 58 % (31-73) Lymphocytes (%) (Auto) 26 % (24-48) Monocytes (%) (Auto) 10 % (0-9) H Eosinophils (%) (Auto) 5 % (0-3) H Basophils (%) (Auto) 1 % (0-3) Neutrophils # (Auto) 4.3 x10^3/uL (1.8-7.7) Lymphocytes # (Auto) 2.0 x10^3/uL (1.0-4.8) Monocytes # (Auto) 0.8 x10^3/uL (0.0-1.1) Eosinophils # (Auto) 0.3 x10^3/uL (0.0-0.7) Basophils # (Auto) 0.1 x10^3/uL (0.0-0.2) Sodium Level 140 mmol/L (136-145) Potassium Level 4.0 mmol/L (3.5-5.1) Chloride Level 104 mmol/L (98-107) Carbon Dioxide Level 32 mmol/L (21-32) Anion Gap 4 (6-14) L Blood Urea Nitrogen 18 mg/dL (7-20) Creatinine 1.0 mg/dL (0.6-1.0) Estimated GFR (Cockcroft-Gault) 55.3 BUN/Creatinine Ratio 18 (6-20) Glucose Level 88 mg/dL (70-99) Calcium Level 8.8 mg/dL (8.5-10.1) Total Bilirubin 0.3 mg/dL (0.2-1.0) Aspartate Amino Transferase (AST) 17 U/L (15-37) Alanine Aminotransferase (ALT) 26 U/L (14-59) Alkaline Phosphatase 106 U/L (46-116) Troponin I High Sensitivity 6 ng/L (4-50) FF-Fac-P-Type Natriuretic Peptide 36 pg/mL (0-124) Total Protein 7.3 g/dL (6.4-8.2) Albumin 3.4 g/dL (3.4-5.0) Albumin/Globulin Ratio 0.9 (1.0-1.7) L O2 Saturation 97 % (92-99) Arterial Blood pH 7.43 (7.35-7.45) Arterial Blood pCO2 at Patient Temp 43 mmHg (35-46) Arterial Blood pO2 at Patient Temp 95 mmHg (65-108) Arterial Blood HCO3 28 mmol/L (21-28) Arterial Blood Base Excess 3 mmol/L (-3-3) Oxyhemoglobin 96.7 % Methemoglobin 0.3 % (0.0-1.9) Carbon Monoxide, Quantitative 0.2 % (0.0-1.9) FiO2 28% Laboratory Tests 03/10/22 19:10 Laboratory Tests 03/10/22 19:10 Vital Signs: Vital Signs Date Time Temp Pulse Resp B/P (MAP) Pulse Ox O2 Delivery O2 Flow Rate FiO2 03/10/22 22:54 95 Nasal Cannula 2.0 03/10/22 22:11 76 20 161/73 (102) 03/10/22 19:09 98.7 98.7 EKG: EKG: [] Radiology/Procedures: Radiology/Procedures: [] Exam: CT head INDICATION: Stroke TECHNIQUE: Sequential axial images through the head were obtained without the administration of IV contrast. Exposure: One or more of the following in the visualized dose reduction techniques were utilized for this examination: 1. Automated exposure control 2. Adjustment of the MA and/or KV according to patient size 3. Use of iterative of reconstructive technique Comparisons: 09/20/2017 FINDINGS: No focal parenchymal lesion or hemorrhage is identified. There is no midline shift or sulcal effacement. Mild patchy hypodensity in the periventricular white matter. No acute vascular territory infarction is identified. Miranda-white distinction is preserved. The ventricular system is within normal limits without compression hydrocephalus. The basal cisterns are well maintained. The visualized portions of the paranasal sinuses and mastoid air cells are well- pneumatized. No acute fractures. Stable appearance of the right globe. IMPRESSION: PATIENT: KRUNAL MARSHALL LACCOUNT: [id number] : 1955 LOCATION: ER AGE: 66 SEX: F EXAM STATUS: REG ER ORD. PHYSICIAN: ZORAIDA,KIRILL C DO REASON: SOB;OMNI 350,100ML PROCEDURE: CT ANGIOGRAPHY CHEST CTA Chest with contrast: Clinical History: Reason: SOB;OMNI 350,100ML / Spl. Instructions: / History: Shortness of breath. Axial helical images of the chest were obtained after the administration of 100 cc of IV Isovue-370 and timed appropriately for a pulmonary arterial study. Conventional axial reconstruction was performed in addition to coronal, sagittal and bilateral oblique MIP (maximum intensity projection). This study was ordered to detect possible pulmonary embolism. There are no filling defects to suggest pulmonary embolism. The more peripheral subsegmental pulmonary arteries are not well opacified limiting our sensitivity for small peripheral pulmonary emboli. The lungs and pleural margins are clear. There is no mediastinal or hilar lymphadenopathy. The thoracic aorta appears normal. There is a stone in the gallbladder. Impression: 1. No evidence of pulmonary embolism. 2. No significant findings. PQRS Compliance Statement: One or more of the following individualized dose reduction techniques were utilized for this examination: 1. Automated exposure control 2. Adjustment of the mA and/or kV according to patient size 3. Use of iterative reconstruction techni PATIENT: KRUNAL MARSHALL LACCOUNT: [id number] : 1955 LOCATION: ER AGE: 66 SEX: F EXAM STATUS: PRE ER ORD. PHYSICIAN: KIRILL CONWAY DO REASON: SOB PROCEDURE: PORTABLE CHEST 1V EXAMINATION: Chest radiograph. VIEWS: Single AP view of the chest COMPARISON: 02/15/2021 INDICATION:66 years, Female, shortness of breath. FINDINGS: Normal cardiomediastinal silhouette. No focal consolidation. No pleural effusion or pneumothorax. No acute osseous process. IMPRESSION: No acute cardiopulmonary process. Course & Med Decision Making: Course & Med Decision Making Pertinent Labs and Imaging studies reviewed. (See chart for details) [] Patient states that while she was in the ER she started to be more more confused and she has been acutely as well as having slurred speech. Code stroke was called to evaluate. Patient is NIH scale at the time was a [address] scan result time patient recovered back to her normal self. Patient was not a candidate for tPA. Patient was reevaluated states that she still feels short of breath. Patient wi ll be brought in for dyspnea. Dragon Disclaimer: Dragon Disclaimer: This electronic medical record was generated, in whole or in part, using a voice recognition dictation system. Departure Departure Impression: Primary Impression: COPD exacerbation Additional Impression: Encephalopathy Disposition: 09 ADMITTED INPATIENT Condition: STABLE Referrals: FILEMON XAVIER (PCP) KIRILL CONWAY DO Mar 10, 2022 23:55
--- NOTE | 2022-03-11 02:10 | NUR ---
The patient, KRUNAL MARSHALL, 66 y/o, F admitted by TIARA CAMPOS MD, was given written information regarding hospital policies, unit procedures and contact persons. USED HISTORY IN THE EMR WELL WHAT SHE TOLD. DOESNT KNOW HER MEDS, LIST WAS TAKEN HOME WITH HER FRIEND Valuables were checked and OBSERVED AND DOCUMENTED IN THE EMR. MOST WAS TAKEN HOME BY HER FRIEND HIRA CLARK.
[2022-03-11 02:49] VITALS: BP 159/73
[2022-03-11] MEDS ORDERED: ONDANSETRON PF 4 MG/2 ML VIAL. IVP PRN (06:00)
[2022-03-11] MEDS ORDERED: ALBUTEROL SULFATE 2.5 MG/3 ML NEBU. NEB PRN (06:00)
[2022-03-11] MEDS ORDERED: guaiFENesin DM 200MG/20MG 10 ML SYRUP PO PRN (06:00)
[2022-03-11 07:00] VITALS: BP 152/63
[2022-03-11] MEDS: BUDESONIDE 0.5 MG/2 ML NEBU. NEB SCH ×2 (09:06→20:00)
[2022-03-11] MEDS: IPRATRPIUM/ALBUTEROL 0.5/2.5MG 3 ML NEBU. NEB SCH ×4 (09:06→20:00)
[2022-03-11] MEDS: ACETAMINOPHEN 325 MG TABLET. PO PRN (09:21)
[2022-03-11] MEDS: ENOXAPARIN 40 MG/0.4 ML SYRINGE. SQ SCH ×2 (09:26→21:00)
[2022-03-11 11:00] VITALS: BP 159/70
--- NOTE | 2022-03-11 12:00 | CONS ---
DATE OF CONSULTATION: 03/11/2022 PULMONARY CONSULTATION ATTENDING PHYSICIAN: Dr. Florez. REASON FOR CONSULTATION: Dyspnea, sleep apnea, hypoxia. HISTORY OF PRESENT ILLNESS: The patient is a 66-year-old female who is morbidly obese with a BMI of 57.7. The patient has history of severe obstructive sleep apnea along with obesity and hypoventilation syndrome. She is on home oxygen on a nightly basis. She also uses home oxygen during the day. The patient also has a history of asthma. She was brought into the hospital with some dyspnea and some confusion. The patient denies any chest pain, denies any cough, fever or chills. There is mild lower extremity edema. Arterial blood gases were obtained and it showed a pH of 7.43, pCO2 of 43 and pO2 of 95, this is on 28% oxygen. The patient is a mouth breather. She says she has been using nasal pillows for her for CPAP. She has requested a full face mask. She has got a new machine. CT chest was reviewed. There was no evidence of any pulmonary embolism. No significant infiltrates were seen. PAST MEDICAL HISTORY: Significant for history of CHF, questionable COPD, history of asthma, history of gallstone, history of severe obstructive sleep apnea, history of obesity/hypoventilation syndrome and history of chronic respiratory failure. PAST SURGICAL HISTORY: Tonsillectomy and eye surgery. ALLERGIES: None. MEDICATIONS: Reviewed as listed in the MRAD including Lovenox for DVT prophylaxis and DuoNeb. REVIEW OF SYSTEMS: Twelve-point review of system obtained. Pertinent positives discussed in my present illness, otherwise noncontributory. All systems that were negative were reviewed as well. SOCIAL HISTORY: Quit tobacco 45 years ago. FAMILY HISTORY: Noncontributory to lungs. PHYSICAL EXAMINATION: VITAL SIGNS: Reviewed. Blood pressure is stable, pulse ox 97% on 2 liters. NECK: Supple. LUNGS: With diminished breath sounds. No wheezing. CARDIOVASCULAR: With a regular rate. ABDOMEN: Soft, nontender. EXTREMITIES: With trace pitting edema. LABORATORY DATA: Reviewed. ABGs discussed in my history of present illness. BUN 18, creatinine 1.0. White cell count 7.5. IMPRESSION: 1. Encephalopathy. Seems to have resolved. No obvious hypercapnia. No evidence of any stroke by CT head. Seems to be at her baseline. 2. History of severe obstructive sleep apnea and obesity/hypoventilation syndrome. She is on CPAP at 15 cm water at home, along with oxygen at night and during the day. She needs to have her nasal pillows changed to full face mask since she is mouth breather. 3. Underlying morbid obesity with a BMI of 57.7. 4. No evidence of any abnormality on the CT angiogram. RECOMMENDATIONS: 1. We will reach out to the patient's DME company to provide her full face mask. 2. Continue home CPAP at 15 cm water along with oxygen bleed in. 3. DVT prophylaxis with Lovenox. 4. Continue DuoNeb and Pulmicort. 5. From a pulmonary standpoint, she could be discharged. PARESH DR: Yon TID: [id number]
--- NOTE | 2022-03-11 12:23 | PDOC1 ---
History and Physical Date of Admission Date of Admission DATE: 03/11/22 TIME: 11:48 Identification/Chief Complaint Chief Complaint Bradycardia Source Source: Patient History of Present Illness History of Present Illness Patient is a 66-year-old with past medical history of COPD on 2 L chronically, presents to the ED with complaints of results of intermittent bradycardia and tachycardia over the past week. She states when these episodes happen she becomes very weak on minimal exertion. She denies any significant shortness of breath at the time my evaluation, he does not note any significant worsening of her respirations over the past week. Patient lives alone and concerned about discharging home at this time. She reportedly has been acting more confused. At the time my evaluation she denies any chest pain, nausea, or vomiting. She has been admitted for further medical management. Past Medical History Cardiovascular: HTN, Hyperlipidemia Pulmonary: Bronchitis, COPD Past Surgical History Past Surgical History: Tonsillectomy, Hysterectomy Family History Family History: No Significant, Hypertension Social History Smoke: Quit ALCOHOL: rare Drugs: None Current Problem List Problem List Problems Medical Problems: (1) COPD exacerbation Status: Acute (2) Encephalopathy Status: Acute Current Medications Current Medications Current Medications Albuterol Sulfate (Ventolin Neb Soln) 2.5 mg 1X ONCE NEB Last administered on 03/10/22at 22:50; Start 03/10/22 at 21:30; Stop 03/10/22 at 21:31; Status DC Iohexol (Omnipaque 350 Mg/ml) 100 ml 1X ONCE IV ; Start 03/10/22 at 22:00; Stop 03/10/22 at 22:01; Status DC Info (CONTRAST GIVEN -- Rx MONITORING) 1 each PRN DAILY PRN MC SEE COMMENTS; Start 03/10/22 at 22:15; Stop 03/12/22 at 22:14 Azithromycin (Zithromax) 500 mg 1X ONCE PO Last administered on 03/10/22at 23:17; Start 03/10/22 at 23:15; Stop 03/10/22 at 23:16; Status DC Methylprednisolone Sodium Succinate (SOLU-Medrol 125MG VIAL) 125 mg 1X ONCE IV Last administered on 03/10/22at 23:17; Start 03/10/22 at 23:15; Stop 03/10/22 at 23:16; Status DC Acetaminophen (Tylenol) 650 mg PRN Q6HRS PRN PO MILD PAIN / TEMP > 100.3'F Last administered on 03/11/22at 09:21; Start 03/11/22 at 06:00 Ondansetron HCl (Zofran) 4 mg PRN Q4HRS PRN IVP NAUSEA/VOMITING; Start 03/11/22 at 06:00 Guaifenesin (Robitussin Dm) 10 ml PRN Q6HRS PRN PO COUGH; Start 03/11/22 at 06:00 Budesonide (Pulmicort) 0.5 mg RTBID NEB Last administered on 03/11/22at 09:06; Start 03/11/22 at 08:00 Enoxaparin Sodium (Lovenox 40mg Syringe) 40 mg BID SQ Last administered on 03/11/22at 09:26; Start 03/11/22 at 09:00 Albuterol/ Ipratropium (Duoneb) 3 ml RTQID NEB Last administered on 03/11/22at 11:31; Start 03/11/22 at 08:00 Albuterol Sulfate (Ventolin Neb Soln) 2.5 mg PRN Q4HRS PRN NEB SHORTNESS OF BREATH; Start 03/11/22 at 06:00 Olanzapine (ZyPREXA ZYDIS) 5 mg PRN BID PRN PO ANXIETY / AGITATION Last administered on 03/11/22at 09:24; Start 03/11/22 at 06:00 Active Scripts Active Reported Benicar (Olmesartan Medoxomil) 40 Mg Tablet 40 Mg PO DAILY Ventolin Hfa Inhaler (Albuterol Sulfate) 18 Gm Hfa.aer.ad 2 Puff INH Q4HRS Maxzide 37.5 Mg-25 Mg Tablet (Triamterene/Hydrochlorothiazid) 1 Each Tablet 1 Tab PO DAILY Xanax (Alprazolam) 0.25 Mg Tablet 0.25 Mg PO PRN Q6HRS Advair 250-50 Diskus (Fluticasone/Salmeterol) 1 Each Disk.w.dev 1 Puff IH BID Allergies Allergies: Coded Allergies: No Known Drug Allergies (Unverified , 03/10/22) ROS Review of System GENERAL: Weakness. No history of weight change or fevers. SKIN: No bruising, hair changes or rashes. EYES: No blurred, double or loss of vision. NOSE AND THROAT: No history of nosebleeds, hoarseness or sore throat. HEART: Bradycardia, tachycardia. Denies chest pain. LUNGS: Denies cough, hemoptysis, wheezing or shortness of breath. GASTROINTESTINAL: Denies nausea, vomiting, abdominal pain. GENITOURINARY: Denies dysuria, frequency, urgency, hematuria. NEUROLOGIC: Denies history of numbness, tingling, or tremor. PSYCHIATRIC: Denies anxiety, denies depression. ENDOCRINE: No history of heat or cold intolerance, polyuria or polydipsia. EXTREMITIES: Denies muscle weakness, joint pain, pain on walking or stiffness. Physical Exam Physical Exam General: Alert, Oriented X3, Cooperative, No acute distress HEENT: PERRLA, EOMI Lungs: Clear to auscultation, Normal air movement Heart: RRR, no murmurs Cardiovascular: S1, S2 Abdomen: Normal bowel sounds, Soft, No tenderness Extremities: 1+ edema bilaterally. No clubbing, No cyanosis Skin: No rashes, No significant lesion Neuro: Normal speech, Normal tone, Sensation intact Psych/Mental Status: She appears somewhat confused, Mood NL Vitals Vitals Vital Signs Date Time Temp Pulse Resp B/P (MAP) Pulse Ox O2 Delivery O2 Flow Rate FiO2 03/11/22 11:00 97.9 86 18 159/70 (99) 91 Nasal Cannula 3.0 97.9 Labs Labs Laboratory Tests Test 03/10/22 19:10 03/10/22 23:02 03/11/22 00:25 White Blood Count 7.5 x10^3/uL (4.0-11.0) Red Blood Count 5.07 x10^6/uL (3.50-5.40) Hemoglobin 15.4 g/dL (12.0-15.5) Hematocrit 46.3 % (36.0-47.0) Mean Corpuscular Volume 91 fL (79-100) Mean Corpuscular Hemoglobin 30 pg (25-35) Mean Corpuscular Hemoglobin Concent 33 g/dL (31-37) Red Cell Distribution Width 13.0 % (11.5-14.5) Platelet Count 290 x10^3/uL (140-400) Neutrophils (%) (Auto) 58 % (31-73) Lymphocytes (%) (Auto) 26 % (24-48) Monocytes (%) (Auto) 10 % (0-9) Eosinophils (%) (Auto) 5 % (0-3) Basophils (%) (Auto) 1 % (0-3) Neutrophils # (Auto) 4.3 x10^3/uL (1.8-7.7) Lymphocytes # (Auto) 2.0 x10^3/uL (1.0-4.8) Monocytes # (Auto) 0.8 x10^3/uL (0.0-1.1) Eosinophils # (Auto) 0.3 x10^3/uL (0.0-0.7) Basophils # (Auto) 0.1 x10^3/uL (0.0-0.2) Sodium Level 140 mmol/L (136-145) Potassium Level 4.0 mmol/L (3.5-5.1) Chloride Level 104 mmol/L (98-107) Carbon Dioxide Level 32 mmol/L (21-32) Anion Gap 4 (6-14) Blood Urea Nitrogen 18 mg/dL (7-20) Creatinine 1.0 mg/dL (0.6-1.0) Estimated GFR (Cockcroft-Gault) 55.3 BUN/Creatinine Ratio 18 (6-20) Glucose Level 88 mg/dL (70-99) Calcium Level 8.8 mg/dL (8.5-10.1) Total Bilirubin 0.3 mg/dL (0.2-1.0) Aspartate Amino Transf (AST/SGOT) 17 U/L (15-37) Alanine Aminotransferase (ALT/SGPT) 26 U/L (14-59) Alkaline Phosphatase 106 U/L (46-116) Troponin I High Sensitivity 6 ng/L (4-50) SC-Fkb-G-Type Natriuretic Peptide 36 pg/mL (0-124) Total Protein 7.3 g/dL (6.4-8.2) Albumin 3.4 g/dL (3.4-5.0) Albumin/Globulin Ratio 0.9 (1.0-1.7) O2 Saturation 97 % (92-99) Arterial Blood pH 7.43 (7.35-7.45) Arterial Blood pCO2 at Patient Temp 43 mmHg (35-46) Arterial Blood pO2 at Patient Temp 95 mmHg (65-108) Arterial Blood HCO3 28 mmol/L (21-28) Arterial Blood Base Excess 3 mmol/L (-3-3) Oxyhemoglobin 96.7 % Methemoglobin 0.3 % (0.0-1.9) Carbon Monoxide, Quantitative 0.2 % (0.0-1.9) FiO2 28% Ammonia < 10 mcmol/L (11-34) Ethyl Alcohol Level < 10 mg/dL (0-10) Laboratory Tests Test 03/10/22 19:10 03/10/22 23:02 03/11/22 00:25 White Blood Count 7.5 x10^3/uL (4.0-11.0) Red Blood Count 5.07 x10^6/uL (3.50-5.40) Hemoglobin 15.4 g/dL (12.0-15.5) Hematocrit 46.3 % (36.0-47.0) Mean Corpuscular Volume 91 fL (79-100) Mean Corpuscular Hemoglobin 30 pg (25-35) Mean Corpuscular Hemoglobin Concent 33 g/dL (31-37) Red Cell Distribution Width 13.0 % (11.5-14.5) Platelet Count 290 x10^3/uL (140-400) Neutrophils (%) (Auto) 58 % (31-73) Lymphocytes (%) (Auto) 26 % (24-48) Monocytes (%) (Auto) 10 % (0-9) Eosinophils (%) (Auto) 5 % (0-3) Basophils (%) (Auto) 1 % (0-3) Neutrophils # (Auto) 4.3 x10^3/uL (1.8-7.7) Lymphocytes # (Auto) 2.0 x10^3/uL (1.0-4.8) Monocytes # (Auto) 0.8 x10^3/uL (0.0-1.1) Eosinophils # (Auto) 0.3 x10^3/uL (0.0-0.7) Basophils # (Auto) 0.1 x10^3/uL (0.0-0.2) Sodium Level 140 mmol/L (136-145) Potassium Level 4.0 mmol/L (3.5-5.1) Chloride Level 104 mmol/L (98-107) Carbon Dioxide Level 32 mmol/L (21-32) Anion Gap 4 (6-14) Blood Urea Nitrogen 18 mg/dL (7-20) Creatinine 1.0 mg/dL (0.6-1.0) Estimated GFR (Cockcroft-Gault) 55.3 BUN/Creatinine Ratio 18 (6-20) Glucose Level 88 mg/dL (70-99) Calcium Level 8.8 mg/dL (8.5-10.1) Total Bilirubin 0.3 mg/dL (0.2-1.0) Aspartate Amino Transf (AST/SGOT) 17 U/L (15-37) Alanine Aminotransferase (ALT/SGPT) 26 U/L (14-59) Alkaline Phosphatase 106 U/L (46-116) Troponin I High Sensitivity 6 ng/L (4-50) HU-Hmv-L-Type Natriuretic Peptide 36 pg/mL (0-124) Total Protein 7.3 g/dL (6.4-8.2) Albumin 3.4 g/dL (3.4-5.0) Albumin/Globulin Ratio 0.9 (1.0-1.7) O2 Saturation 97 % (92-99) Arterial Blood pH 7.43 (7.35-7.45) Arterial Blood pCO2 at Patient Temp 43 mmHg (35-46) Arterial Blood pO2 at Patient Temp 95 mmHg (65-108) Arterial Blood HCO3 28 mmol/L (21-28) Arterial Blood Base Excess 3 mmol/L (-3-3) Oxyhemoglobin 96.7 % Methemoglobin 0.3 % (0.0-1.9) Carbon Monoxide, Quantitative 0.2 % (0.0-1.9) FiO2 28% Ammonia < 10 mcmol/L (11-34) Ethyl Alcohol Level < 10 mg/dL (0-10) Images Images PATIENT: KRUNAL MARSHALL LACCOUNT: [id number] : 1955 LOCATION: ER AGE: 66 SEX: F EXAM STATUS: PRE ER ORD. PHYSICIAN: KIRILL CONWAY DO REASON: SOB PROCEDURE: PORTABLE CHEST 1V EXAMINATION: Chest radiograph. VIEWS: Single AP view of the chest COMPARISON: 02/15/2021 INDICATION:66 years, Female, shortness of breath. FINDINGS: Normal cardiomediastinal silhouette. No focal consolidation. No pleural effusion or pneumothorax. No acute osseous process. IMPRESSION: No acute cardiopulmonary process. PATIENT: KRUNAL MARSHALL LACCOUNT: [id number] : 1955 LOCATION: ER AGE: 66 SEX: F EXAM STATUS: REG ER ORD. PHYSICIAN: KIRILL CONWAY DO REASON: SOB;OMNI 350,100ML PROCEDURE: CT ANGIOGRAPHY CHEST CTA Chest with contrast: Clinical History: Reason: SOB;OMNI 350,100ML / Spl. Instructions: / History: Shortness of breath. Axial helical images of the chest were obtained after the administration of 100 cc of IV Isovue-370 and timed appropriately for a pulmonary arterial study. Conventional axial reconstruction was performed in addition to coronal, sagittal and bilateral oblique MIP (maximum intensity projection). This study was ordered to detect possible pulmonary embolism. There are no filling defects to suggest pulmonary embolism. The more peripheral subsegmental pulmonary arteries are not well opacified limiting our sensitivity for small peripheral pulmonary emboli. The lungs and pleural margins are clear. There is no mediastinal or hilar lymphadenopathy. The thoracic aorta appears normal. There is a stone in the gallbladder. Impression: 1. No evidence of pulmonary embolism. 2. No significant findings. VTE Prophylaxis Ordered VTE Prophylaxis Devices: No VTE Pharmacological Prophylaxi: Yes Assessment/Plan Assessment/Plan Suspected sick sinus syndrome Acute COPD Weakness HTN Plan: Consultation: Placed to pulmonology Will consult cardiology for suspected sick sinus syndrome PT/OT Resume home medications FEN - Cardiac diet PPX - Lovenox FULL CODE/surrogate decision-maker is her daughter (Gris Nicholas) Dispo - inpatient for above Justifications for Admission Other Justification CHRISTY VERDUGO MD Mar 11, 2022 12:23
[2022-03-11] MEDS ORDERED: METOPROLOL IV PUSH 5 MG/5 ML VIAL. IVP PRN (12:30)
--- NOTE | 2022-03-11 13:42 | PDOC2 ---
CARDIAC CONSULT DATE OF CONSULT Date of Consult DATE: 03/11/22 TIME: 13:17 REASON FOR CONSULT Reason for Consult: SSS REFERRING PHYSICIAN Referring Physician: Charlie SOURCE Source: Chart review, Patient HISTORY OF PRESENT ILLNESS HISTORY OF PRESENT ILLNESS This is a pleasant 66 yo female admitted for complains of shortness of breath in the last week. She laso has been having palpitations. she uses her oximetry freq uently and has been noting her HR in the 40s and >100s sometimes. Complains of intermittent palpitations and also has intermittent chest tightness with ERNST and arm tingling sensation. No passing out or frequent dizziness. Denies any nausea or vmoting and no fever or chills. This has been ongoing in the last 2 days at least. No prior hx of CAD, arrhythmias or VTE. PAST MEDICAL HISTORY Cardiovascular: HTN, Hyperlipidemia Pulmonary: COPD, Pneumonia, Other (LISA) GI: Diverticulosis, GERD Hepatobiliary: Hep A/B/C (b) PAST SURGICAL HISTORY Past Surgical History: Tonsillectomy, Hysterectomy FAMILY HISTORY Family History: Hypertension SOCIAL HISTORY Smoke: Quit ALCOHOL: rare Drugs: None Lives: with Family CURRENT MEDICATIONS CURRENT MEDICATIONS Current Medications Medications (Trade) Dose Ordered Sig/Juan Route PRN Reason Start Time Stop Time Status Last Admin Dose Admin Albuterol Sulfate (Ventolin Neb Soln) 2.5 mg 1X ONCE NEB 03/10/22 21:30 03/10/22 21:31 DC 03/10/22 22:50 Azithromycin (Zithromax) 500 mg 1X ONCE PO 03/10/22 23:15 03/10/22 23:16 DC 03/10/22 23:17 Methylprednisolone Sodium Succinate (SOLU-Medrol 125MG VIAL) 125 mg 1X ONCE IV 03/10/22 23:15 03/10/22 23:16 DC 03/10/22 23:17 Acetaminophen (Tylenol) 650 mg PRN Q6HRS PRN PO MILD PAIN / TEMP > 100.3'F 03/11/22 06:00 03/11/22 09:21 Budesonide (Pulmicort) 0.5 mg RTBID NEB 03/11/22 08:00 03/11/22 09:06 Enoxaparin Sodium (Lovenox 40mg Syringe) 40 mg BID SQ 03/11/22 09:00 03/11/22 09:26 Albuterol/ Ipratropium (Duoneb) 3 ml RTQID NEB 03/11/22 08:00 03/11/22 11:31 Olanzapine (ZyPREXA ZYDIS) 5 mg PRN BID PRN PO ANXIETY / AGITATION 03/11/22 06:00 03/11/22 09:24 ALLERGIES ALLERGIES: Coded Allergies: No Known Drug Allergies (Unverified , 03/10/22) ROS Review of System 14 point ROS evaluated with pertinent positives noted per HPI PHYSICAL EXAM General: Alert, Oriented X3, Cooperative, No acute distress HEENT: Atraumatic, Mucous membr. moist/pink Lungs: Other (diminished) Heart: Regular rate (SR), Normal S1, Normal S2, Other (2/6 systolic murmur to LLS border) Abdomen: Soft, No tenderness Extremities: No cyanosis, No edema Skin: No breakdown, No significant lesion Neuro: Normal speech, Sensation intact Psych/Mental Status: Mental status NL, Mood NL MUSCULOSKELETAL: Osteoarthritic changes both hands VITALS/I&O VITALS/I&O: Vital Signs Date Time Temp Pulse Resp B/P (MAP) Pulse Ox O2 Delivery O2 Flow Rate FiO2 03/11/22 11:00 97.9 86 18 159/70 (99) 91 Nasal Cannula 3.0 97.9 I & O 03/10/22 03/10/22 03/11/22 15:00 23:00 07:00 Output Total 500 ml Balance -500 ml LABS Lab: Laboratory Tests Test 03/10/22 19:10 03/10/22 23:02 03/11/22 00:25 White Blood Count 7.5 x10^3/uL (4.0-11.0) Red Blood Count 5.07 x10^6/uL (3.50-5.40) Hemoglobin 15.4 g/dL (12.0-15.5) Hematocrit 46.3 % (36.0-47.0) Mean Corpuscular Volume 91 fL (79-100) Mean Corpuscular Hemoglobin 30 pg (25-35) Mean Corpuscular Hemoglobin Concent 33 g/dL (31-37) Red Cell Distribution Width 13.0 % (11.5-14.5) Platelet Count 290 x10^3/uL (140-400) Neutrophils (%) (Auto) 58 % (31-73) Lymphocytes (%) (Auto) 26 % (24-48) Monocytes (%) (Auto) 10 % (0-9) H Eosinophils (%) (Auto) 5 % (0-3) H Basophils (%) (Auto) 1 % (0-3) Neutrophils # (Auto) 4.3 x10^3/uL (1.8-7.7) Lymphocytes # (Auto) 2.0 x10^3/uL (1.0-4.8) Monocytes # (Auto) 0.8 x10^3/uL (0.0-1.1) Eosinophils # (Auto) 0.3 x10^3/uL (0.0-0.7) Basophils # (Auto) 0.1 x10^3/uL (0.0-0.2) Sodium Level 140 mmol/L (136-145) Potassium Level 4.0 mmol/L (3.5-5.1) Chloride Level 104 mmol/L (98-107) Carbon Dioxide Level 32 mmol/L (21-32) Anion Gap 4 (6-14) L Blood Urea Nitrogen 18 mg/dL (7-20) Creatinine 1.0 mg/dL (0.6-1.0) Estimated GFR (Cockcroft-Gault) 55.3 BUN/Creatinine Ratio 18 (6-20) Glucose Level 88 mg/dL (70-99) Calcium Level 8.8 mg/dL (8.5-10.1) Total Bilirubin 0.3 mg/dL (0.2-1.0) Aspartate Amino Transferase (AST) 17 U/L (15-37) Alanine Aminotransferase (ALT) 26 U/L (14-59) Alkaline Phosphatase 106 U/L (46-116) Troponin I High Sensitivity 6 ng/L (4-50) BC-Pae-S-Type Natriuretic Peptide 36 pg/mL (0-124) Total Protein 7.3 g/dL (6.4-8.2) Albumin 3.4 g/dL (3.4-5.0) Albumin/Globulin Ratio 0.9 (1.0-1.7) L O2 Saturation 97 % (92-99) Arterial Blood pH 7.43 (7.35-7.45) Arterial Blood pCO2 at Patient Temp 43 mmHg (35-46) Arterial Blood pO2 at Patient Temp 95 mmHg (65-108) Arterial Blood HCO3 28 mmol/L (21-28) Arterial Blood Base Excess 3 mmol/L (-3-3) Oxyhemoglobin 96.7 % Methemoglobin 0.3 % (0.0-1.9) Carbon Monoxide, Quantitative 0.2 % (0.0-1.9) FiO2 28% Ammonia < 10 mcmol/L (11-34) L Ethyl Alcohol Level < 10 mg/dL (0-10) Laboratory Tests 03/10/22 19:10 Laboratory Tests 03/10/22 19:10 ECHOCARDIOGRAM ECHOCARDIOGRAM <Conclusion> The left ventricle is normal size. The left ventricular systolic function is normal and the ejection fraction is within normal range. The Ejection Fraction is 55-60%. There is no significant aortic valvular stenosis. Doppler and Color-flow revealed trace mitral regurgitation. Doppler and Color Flow revealed no tricuspid valve regurgitation noted. DATE: 10/16/1907 ASSESSMENT/PLAN ASSESSMENT/PLAN 1. Acute on chronic respiratory failure: possible anginal component 2. Chest pain: no acute EKG changes, trop nml 3. Palpitations/bradycardia: no arrhythmias as an inpt. SR 4. COPD 5. HTN: on home benicar and maxide Recommendations 1. Continue pulmonary optimization 2. MCOT. Will need outpt lexiscan 3. TTE, FLP, TSH 4. ASA. statin per lipid level 5. May restart home BP regimen 6. Follow up on April 21 1:15 PM RENEA DOSS APRN Mar 11, 2022 13:42
[2022-03-11] MEDS: NYSTATIN TOPICAL POWDER 15GM BOTTLE. TP SCH ×2 (14:00→21:00)
[2022-03-11] MEDS: TRIAMTERENE/HCTZ 37.5/25MG TABLET. PO SCH (14:24)
[2022-03-11] MEDS: ASPIRIN ENTERIC COATED 81 MG TABLET.DR. PO SCH (14:24)
[2022-03-11] MEDS: LOSARTAN POTASSIUM 50 MG TABLET. PO SCH (14:24)
[2022-03-11 15:00] VITALS: BP 147/65
[2022-03-11] MEDS: DOCUSATE SODIUM 100 MG CAPSULE. PO SCH (21:00)
[2022-03-11] MEDS: ALPRAZolam 0.25 MG TABLET PO PRN (21:00)
[2022-03-11 22:55] LABS: BARBITURATES NEG (NEG); BENZODIAZEPINES NEG (NEG); CANNABINOIDS NEG (NEG); COCAINE NEG (NEG); METHADONE NEG (NEG); OPIATES NEG (NEG); PHENCYCLIDINE NEG (NEG)
[2022-03-12 02:18] VITALS: BP 143/63
[2022-03-12 03:06] LABS: AMPHETAMINE/METHAMPHETAMINE NEG (NEG)
[2022-03-12] MEDS: ALPRAZolam 0.25 MG TABLET PO PRN ×2 (03:11→20:39)
[2022-03-12 05:13] LABS: ALBUMIN/GLOBULIN RATIO 0.7 (1.0-1.7); CALCIUM 9.1 mg/dL (8.5-10.1); GFR 55.3; POTASSIUM 4.1 mmol/L (3.5-5.1); TOTAL BILIRUBIN 0.3 mg/dL (0.2-1.0); TOTAL PROTEIN 7.3 g/dL (6.4-8.2)
[2022-03-12 05:50] LABS: BASO % 0 % (0-3); EOS % 0 % (0-3); HEMATOCRIT 43.3 % (36.0-47.0); HEMOGLOBIN 14.5 g/dL (12.0-15.5); LYMPH # 1.4 x10^3/uL (1.0-4.8); LYMPH % 13 % (24-48); MEAN CORPUSCULAR HEMOGLOBIN 31 pg (25-35); MEAN CORPUSCULAR HGB CONC 33 g/dL (31-37); MEAN CORPUSCULAR VOLUME 91 fL (79-100); MONO # 0.8 x10^3/uL (0.0-1.1); MONO % 7 % (0-9); NEUT # 8.7 x10^3/uL (1.8-7.7); NEUT % 80 % (31-73); PLATELET COUNT 277 x10^3/uL (140-400); RED BLOOD COUNT 4.75 x10^6/uL (3.50-5.40); RED CELL DISTRIBUTION WIDTH 13.1 % (11.5-14.5); WHITE BLOOD COUNT 10.9 x10^3/uL (4.0-11.0)
[2022-03-12 07:00] VITALS: BP 123/66
[2022-03-12] MEDS: IPRATRPIUM/ALBUTEROL 0.5/2.5MG 3 ML NEBU. NEB SCH ×4 (07:24→20:51)
[2022-03-12] MEDS: BUDESONIDE 0.5 MG/2 ML NEBU. NEB SCH ×2 (07:24→20:51)
[2022-03-12] MEDS: ACETAMINOPHEN 325 MG TABLET. PO PRN ×2 (08:25→23:01)
[2022-03-12] MEDS: TRIAMTERENE/HCTZ 37.5/25MG TABLET. PO SCH (08:25)
[2022-03-12] MEDS: ASPIRIN ENTERIC COATED 81 MG TABLET.DR. PO SCH (08:26)
[2022-03-12] MEDS: LOSARTAN POTASSIUM 50 MG TABLET. PO SCH (08:26)
[2022-03-12] MEDS: ENOXAPARIN 40 MG/0.4 ML SYRINGE. SQ SCH ×2 (08:26→20:39)
[2022-03-12] MEDS: DOCUSATE SODIUM 100 MG CAPSULE. PO SCH ×2 (08:26→20:39)
[2022-03-12] MEDS: NYSTATIN TOPICAL POWDER 15GM BOTTLE. TP SCH ×3 (08:26→20:40)
--- NOTE | 2022-03-12 09:49 | PDOC ---
PULMONARY PROGRESS NOTES DATE: 03/12/22 TIME: 09:48 Subjective Denies any shortness of breath. Vitals Vital Signs Date Time Temp Pulse Resp B/P (MAP) Pulse Ox O2 Delivery O2 Flow Rate FiO2 03/12/22 08:26 58 123/66 03/12/22 08:00 Nasal Cannula 2.0 03/12/22 07:24 96 03/12/22 07:00 97.3 18 97.3 General: Alert, No acute distress Lungs: Clear Cardiovascular: S1, Other Abdomen: Soft Extremities: Other (1+ edema.) Skin: Warm Labs Laboratory Tests Test 03/10/22 19:10 03/10/22 23:02 03/11/22 00:25 03/11/22 19:00 White Blood Count 7.5 x10^3/uL (4.0-11.0) Red Blood Count 5.07 x10^6/uL (3.50-5.40) Hemoglobin 15.4 g/dL (12.0-15.5) Hematocrit 46.3 % (36.0-47.0) Mean Corpuscular Volume 91 fL (79-100) Mean Corpuscular Hemoglobin 30 pg (25-35) Mean Corpuscular Hemoglobin Concent 33 g/dL (31-37) Red Cell Distribution Width 13.0 % (11.5-14.5) Platelet Count 290 x10^3/uL (140-400) Neutrophils (%) (Auto) 58 % (31-73) Lymphocytes (%) (Auto) 26 % (24-48) Monocytes (%) (Auto) 10 % (0-9) Eosinophils (%) (Auto) 5 % (0-3) Basophils (%) (Auto) 1 % (0-3) Neutrophils # (Auto) 4.3 x10^3/uL (1.8-7.7) Lymphocytes # (Auto) 2.0 x10^3/uL (1.0-4.8) Monocytes # (Auto) 0.8 x10^3/uL (0.0-1.1) Eosinophils # (Auto) 0.3 x10^3/uL (0.0-0.7) Basophils # (Auto) 0.1 x10^3/uL (0.0-0.2) Sodium Level 140 mmol/L (136-145) Potassium Level 4.0 mmol/L (3.5-5.1) Chloride Level 104 mmol/L (98-107) Carbon Dioxide Level 32 mmol/L (21-32) Anion Gap 4 (6-14) Blood Urea Nitrogen 18 mg/dL (7-20) Creatinine 1.0 mg/dL (0.6-1.0) Estimated GFR (Cockcroft-Gault) 55.3 BUN/Creatinine Ratio 18 (6-20) Glucose Level 88 mg/dL (70-99) Calcium Level 8.8 mg/dL (8.5-10.1) Total Bilirubin 0.3 mg/dL (0.2-1.0) Aspartate Amino Transf (AST/SGOT) 17 U/L (15-37) Alanine Aminotransferase (ALT/SGPT) 26 U/L (14-59) Alkaline Phosphatase 106 U/L (46-116) Troponin I High Sensitivity 6 ng/L (4-50) NX-Agf-F-Type Natriuretic Peptide 36 pg/mL (0-124) Total Protein 7.3 g/dL (6.4-8.2) Albumin 3.4 g/dL (3.4-5.0) Albumin/Globulin Ratio 0.9 (1.0-1.7) O2 Saturation 97 % (92-99) Arterial Blood pH 7.43 (7.35-7.45) Arterial Blood pCO2 at Patient Temp 43 mmHg (35-46) Arterial Blood pO2 at Patient Temp 95 mmHg (65-108) Arterial Blood HCO3 28 mmol/L (21-28) Arterial Blood Base Excess 3 mmol/L (-3-3) Oxyhemoglobin 96.7 % Methemoglobin 0.3 % (0.0-1.9) Carbon Monoxide, Quantitative 0.2 % (0.0-1.9) FiO2 28% Ammonia < 10 mcmol/L (11-34) Triglycerides Level 94 mg/dL (0-150) Cholesterol Level 160 mg/dL (0-200) LDL Cholesterol, Calculated 88 mg/dL (0-100) VLDL Cholesterol, Calculated 19 mg/dL (0-40) Non-HDL Cholesterol Calculated 107 mg/dL (0-129) HDL Cholesterol 53 mg/dL (40-60) Cholesterol/HDL Ratio 3.0 Thyroid Stimulating Hormone (TSH) 2.615 uIU/mL (0.358-3.74) Ethyl Alcohol Level < 10 mg/dL (0-10) Urine Opiates Screen Neg (NEG) Urine Methadone Screen Neg (NEG) Urine Barbiturates Neg (NEG) Urine Phencyclidine Screen Neg (NEG) Urine Amphetamine/Methamphetamine Neg (NEG) Urine Benzodiazepines Screen Neg (NEG) Urine Cocaine Screen Neg (NEG) Urine Cannabinoids Screen Neg (NEG) Urine Ethyl Alcohol Neg (NEG) Test 03/12/22 04:00 White Blood Count 10.9 x10^3/uL (4.0-11.0) Red Blood Count 4.75 x10^6/uL (3.50-5.40) Hemoglobin 14.5 g/dL (12.0-15.5) Hematocrit 43.3 % (36.0-47.0) Mean Corpuscular Volume 91 fL (79-100) Mean Corpuscular Hemoglobin 31 pg (25-35) Mean Corpuscular Hemoglobin Concent 33 g/dL (31-37) Red Cell Distribution Width 13.1 % (11.5-14.5) Platelet Count 277 x10^3/uL (140-400) Neutrophils (%) (Auto) 80 % (31-73) Lymphocytes (%) (Auto) 13 % (24-48) Monocytes (%) (Auto) 7 % (0-9) Eosinophils (%) (Auto) 0 % (0-3) Basophils (%) (Auto) 0 % (0-3) Neutrophils # (Auto) 8.7 x10^3/uL (1.8-7.7) Lymphocytes # (Auto) 1.4 x10^3/uL (1.0-4.8) Monocytes # (Auto) 0.8 x10^3/uL (0.0-1.1) Eosinophils # (Auto) 0.0 x10^3/uL (0.0-0.7) Basophils # (Auto) 0.0 x10^3/uL (0.0-0.2) Sodium Level 138 mmol/L (136-145) Potassium Level 4.1 mmol/L (3.5-5.1) Chloride Level 103 mmol/L (98-107) Carbon Dioxide Level 30 mmol/L (21-32) Anion Gap 5 (6-14) Blood Urea Nitrogen 24 mg/dL (7-20) Creatinine 1.0 mg/dL (0.6-1.0) Estimated GFR (Cockcroft-Gault) 55.3 BUN/Creatinine Ratio 24 (6-20) Glucose Level 147 mg/dL (70-99) Calcium Level 9.1 mg/dL (8.5-10.1) Total Bilirubin 0.3 mg/dL (0.2-1.0) Aspartate Amino Transf (AST/SGOT) 16 U/L (15-37) Alanine Aminotransferase (ALT/SGPT) 18 U/L (14-59) Alkaline Phosphatase 100 U/L (46-116) Total Protein 7.3 g/dL (6.4-8.2) Albumin 3.0 g/dL (3.4-5.0) Albumin/Globulin Ratio 0.7 (1.0-1.7) Laboratory Tests Test 03/11/22 19:00 03/12/22 04:00 Urine Opiates Screen Neg (NEG) Urine Methadone Screen Neg (NEG) Urine Barbiturates Neg (NEG) Urine Phencyclidine Screen Neg (NEG) Urine Amphetamine/Methamphetamine Neg (NEG) Urine Benzodiazepines Screen Neg (NEG) Urine Cocaine Screen Neg (NEG) Urine Cannabinoids Screen Neg (NEG) Urine Ethyl Alcohol Neg (NEG) White Blood Count 10.9 x10^3/uL (4.0-11.0) Red Blood Count 4.75 x10^6/uL (3.50-5.40) Hemoglobin 14.5 g/dL (12.0-15.5) Hematocrit 43.3 % (36.0-47.0) Mean Corpuscular Volume 91 fL (79-100) Mean Corpuscular Hemoglobin 31 pg (25-35) Mean Corpuscular Hemoglobin Concent 33 g/dL (31-37) Red Cell Distribution Width 13.1 % (11.5-14.5) Platelet Count 277 x10^3/uL (140-400) Neutrophils (%) (Auto) 80 % (31-73) Lymphocytes (%) (Auto) 13 % (24-48) Monocytes (%) (Auto) 7 % (0-9) Eosinophils (%) (Auto) 0 % (0-3) Basophils (%) (Auto) 0 % (0-3) Neutrophils # (Auto) 8.7 x10^3/uL (1.8-7.7) Lymphocytes # (Auto) 1.4 x10^3/uL (1.0-4.8) Monocytes # (Auto) 0.8 x10^3/uL (0.0-1.1) Eosinophils # (Auto) 0.0 x10^3/uL (0.0-0.7) Basophils # (Auto) 0.0 x10^3/uL (0.0-0.2) Sodium Level 138 mmol/L (136-145) Potassium Level 4.1 mmol/L (3.5-5.1) Chloride Level 103 mmol/L (98-107) Carbon Dioxide Level 30 mmol/L (21-32) Anion Gap 5 (6-14) Blood Urea Nitrogen 24 mg/dL (7-20) Creatinine 1.0 mg/dL (0.6-1.0) Estimated GFR (Cockcroft-Gault) 55.3 BUN/Creatinine Ratio 24 (6-20) Glucose Level 147 mg/dL (70-99) Calcium Level 9.1 mg/dL (8.5-10.1) Total Bilirubin 0.3 mg/dL (0.2-1.0) Aspartate Amino Transf (AST/SGOT) 16 U/L (15-37) Alanine Aminotransferase (ALT/SGPT) 18 U/L (14-59) Alkaline Phosphatase 100 U/L (46-116) Total Protein 7.3 g/dL (6.4-8.2) Albumin 3.0 g/dL (3.4-5.0) Albumin/Globulin Ratio 0.7 (1.0-1.7) Medications Active Scripts Medications Dose Route/Sig Max Daily Dose Days Date Category Benicar (Olmesartan Medoxomil) 40 Mg Tablet 40 Mg PO DAILY 10/15/19 Reported Ventolin Hfa Inhaler (Albuterol Sulfate) 18 Gm Hfa.aer.ad 2 Puff INH Q4HRS 10/15/19 Reported Maxzide 37.5 Mg-25 Mg Tablet (Triamterene/Hydrochlorothiazid) 1 Each Tablet 1 Tab PO DAILY 06/24/15 Reported Xanax (Alprazolam) 0.25 Mg Tablet 0.25 Mg PO PRN Q6HRS 06/24/15 Reported Advair 250-50 Diskus (Fluticasone/Salmeterol) 1 Each Disk.w.dev 1 Puff IH BID 06/24/15 Reported Impression . 1. Encephalopathy. Seems to have resolved. No obvious hypercapnia. No evidence of any stroke by CT head. Seems to be at her baseline. 2. History of severe obstructive sleep apnea and obesity/hypoventilation syndrome. She is on CPAP at 15 cm water at home, along with oxygen at night and during the day. She needs to have her nasal pillows changed to full face mask since she is mouth breather. 3. Underlying morbid obesity with a BMI of 57.7. 4. No evidence of any abnormality on the CT angiogram. Plan . RECOMMENDATIONS: 1. We will reach out to the patient's [employer] company to provide her full face mask as outpatient. 2. Continue home CPAP at 15 cm water along with oxygen bleed in. We will order full facemask while in the hospital. 3. DVT prophylaxis with Lovenox. 4. Continue DuoNeb and Pulmicort. 5. From a pulmonary standpoint, she could be discharged. THOMPSON RINCON MD Mar 12, 2022 09:49
--- NOTE | 2022-03-12 10:07 | PDOC ---
[employer] PROGRESS NOTE Date of Service DOS: DATE: 03/12/22 TIME: 10:05 Chief Complaint Chief Complaint Suspected sick sinus syndrome Acute COPD Weakness HTN History of Present Illness History of Present Illness 03/12: Patient seen and evaluated. Still complains of intermittent palpitations and weakness. Cardiology consulted for possible SSS. Echocardiogram pending. Per cardiology, will consider mobile cardiac outpatient telemetry. Pulmonology will attempt to provide full facemask for CPAP as outpatient. PT/OT recom mendations pending. Vitals/I&O Vitals/I&O: Vital Signs Date Time Temp Pulse Resp B/P (MAP) Pulse Ox O2 Delivery O2 Flow Rate FiO2 03/12/22 08:26 58 123/66 03/12/22 08:00 Nasal Cannula 2.0 03/12/22 07:24 96 03/12/22 07:00 97.3 18 97.3 I & O 03/11/22 03/11/22 03/12/22 15:00 23:00 07:00 Intake Total 530 ml 800 ml Output Total 350 ml 1150 ml Balance 180 ml -350 ml Physical Exam General: Alert, Oriented X3, Cooperative, No acute distress Heart: Regular rate (SR), Normal S1, Normal S2, Other (2/6 systolic murmur to LLS border) Lungs: Clear Abdomen: Soft, No tenderness Extremities: No cyanosis, No edema Skin: No breakdown, No significant lesion Labs Labs: Laboratory Tests Test 03/11/22 19:00 03/12/22 04:00 Urine Opiates Screen Neg (NEG) Urine Methadone Screen Neg (NEG) Urine Barbiturates Neg (NEG) Urine Phencyclidine Screen Neg (NEG) Urine Amphetamine/Methamphetamine Neg (NEG) Urine Benzodiazepines Screen Neg (NEG) Urine Cocaine Screen Neg (NEG) Urine Cannabinoids Screen Neg (NEG) Urine Ethyl Alcohol Neg (NEG) White Blood Count 10.9 x10^3/uL (4.0-11.0) Red Blood Count 4.75 x10^6/uL (3.50-5.40) Hemoglobin 14.5 g/dL (12.0-15.5) Hematocrit 43.3 % (36.0-47.0) Mean Corpuscular Volume 91 fL (79-100) Mean Corpuscular Hemoglobin 31 pg (25-35) Mean Corpuscular Hemoglobin Concent 33 g/dL (31-37) Red Cell Distribution Width 13.1 % (11.5-14.5) Platelet Count 277 x10^3/uL (140-400) Neutrophils (%) (Auto) 80 % (31-73) Lymphocytes (%) (Auto) 13 % (24-48) Monocytes (%) (Auto) 7 % (0-9) Eosinophils (%) (Auto) 0 % (0-3) Basophils (%) (Auto) 0 % (0-3) Neutrophils # (Auto) 8.7 x10^3/uL (1.8-7.7) Lymphocytes # (Auto) 1.4 x10^3/uL (1.0-4.8) Monocytes # (Auto) 0.8 x10^3/uL (0.0-1.1) Eosinophils # (Auto) 0.0 x10^3/uL (0.0-0.7) Basophils # (Auto) 0.0 x10^3/uL (0.0-0.2) Sodium Level 138 mmol/L (136-145) Potassium Level 4.1 mmol/L (3.5-5.1) Chloride Level 103 mmol/L (98-107) Carbon Dioxide Level 30 mmol/L (21-32) Anion Gap 5 (6-14) Blood Urea Nitrogen 24 mg/dL (7-20) Creatinine 1.0 mg/dL (0.6-1.0) Estimated GFR (Cockcroft-Gault) 55.3 BUN/Creatinine Ratio 24 (6-20) Glucose Level 147 mg/dL (70-99) Calcium Level 9.1 mg/dL (8.5-10.1) Total Bilirubin 0.3 mg/dL (0.2-1.0) Aspartate Amino Transf (AST/SGOT) 16 U/L (15-37) Alanine Aminotransferase (ALT/SGPT) 18 U/L (14-59) Alkaline Phosphatase 100 U/L (46-116) Total Protein 7.3 g/dL (6.4-8.2) Albumin 3.0 g/dL (3.4-5.0) Albumin/Globulin Ratio 0.7 (1.0-1.7) Assessment and Plan Assessmemt and Plan Problems Medical Problems: (1) COPD exacerbation Status: Acute (2) Encephalopathy Status: Acute Comment Review of Relevant I have reviewed the following items kimberly (where applicable) has been applied. Medications: Current Medications Medications (Trade) Dose Ordered Sig/Juan Route PRN Reason Start Time Stop Time Status Last Admin Dose Admin Nystatin (Nystop) 1 shirley BID TP 03/11/22 14:00 03/12/22 08:26 Alprazolam (Xanax) 0.25 mg PRN Q6HRS PRN PO ANXIETY / AGITATION 03/11/22 13:30 03/12/22 03:11 Triamterene/HCTZ (Maxzide 37.5/ 25mg) 1 tab DAILY PO 03/11/22 14:00 03/12/22 08:25 Losartan Potassium (Cozaar) 100 mg DAILY PO 03/11/22 14:00 03/12/22 08:26 Docusate Sodium (Colace) 100 mg BID PO 03/11/22 21:00 03/12/22 08:26 Aspirin (Ecotrin) 81 mg DAILYWBKFT PO 03/11/22 14:00 03/12/22 08:26 Justifications for Admission Other Justification CHRISTY VERDUGO MD Mar 12, 2022 10:07
[2022-03-12 11:00] VITALS: BP 127/58
[2022-03-12 11:30] LABS: BACTERIA,URINE 0 /HPF (0-FEW); RBC,URINE 0 /HPF (0-2)
--- NOTE | 2022-03-12 13:07 | NUR ---
YELITZA, EMERGENCY CONTACT IS CONCERNED WITH PT BEING MORE CONFUSED THAN NORMAL AND WEAK. YELITZA AND THE PT FEEL LIKE THE PT IS NOT READY TO GO HOME AND NEEDS SOME THERAPY BEFORE SHE IS SAFE TO BE ALONE. YELITZA STATES PT SISTER IS ALREADY CARING FOR HER AND YELITZA HAS MULTIPLE STAIRS IN HER HOME SO SHE WOULD NOT BE ABLE TO TAKE THE PT HOME. PT SISTER CALLED AND ASKED IF WE COULD LOOK INTO [facility] [address]. PT AND EMERGENCY CONTACT YELITZA ARE FINE WITH PT BEING SENT TO ANY FACILITY THAT WILL TAKE HER. SISTER IS JACQUES KENNYMARGARET,
[2022-03-12] MEDS: POLYETHYLENE GLYCOL 3350 17 GM PACKET. PO SCH (14:48)
[2022-03-12 15:00] VITALS: BP 117/54
--- NOTE | 2022-03-12 16:07 | PDOC ---
CARDIOLOGY PROGRESS NOTE SUBJECTIVE: No new events overnight from a cardiac perspective. Telemetry is unremarkable. OBJECTIVE: Vital Signs/I&O: Vital Signs Date Time Temp Pulse Resp B/P (MAP) Pulse Ox O2 Delivery O2 Flow Rate FiO2 03/12/22 15:43 93 Nasal Cannula 2.0 03/12/22 11:00 97.4 85 18 127/58 (81) 97.4 I & O 03/11/22 03/11/22 03/12/22 15:00 23:00 07:00 Intake Total 530 ml 800 ml Output Total 350 ml 1150 ml Balance 180 ml -350 ml Objective: GEN.: No apparent distress. Alert and oriented. HEENT: Head is normocephalic, atraumatic NECK: Supple. LUNGS: Clear to auscultation. HEART: RRR, S1, S2 present. Peripheral pulses intact ABDOMEN: Soft, nontender. Positive bowel sounds. EXTREMITIES: Without any cyanosis. NEUROLOGIC: Normal speech, normal tone PSYCHIATRIC: Normal affect, normal mood. SKIN: No ulcerations CURRENT MEDICATIONS: Current Medications Medications (Trade) Dose Ordered Sig/Juan Route PRN Reason Start Time Stop Time Status Last Admin Dose Admin Docusate Sodium (Colace) 100 mg BID PO 03/11/22 21:00 03/12/22 08:26 Polyethylene Glycol (miraLAX PACKET) 17 gm DAILY PO 03/12/22 14:00 03/12/22 14:48 DIAGNOSTIC TESTING: Labs and imaging reviewed Labs: Laboratory Tests 03/12/22 04:00 Laboratory Tests Test 03/11/22 19:00 03/12/22 04:00 03/12/22 10:50 Urine Opiates Screen Neg (NEG) Urine Methadone Screen Neg (NEG) Urine Barbiturates Neg (NEG) Urine Phencyclidine Screen Neg (NEG) Urine Amphetamine/Methamphetamine Neg (NEG) Urine Benzodiazepines Screen Neg (NEG) Urine Cocaine Screen Neg (NEG) Urine Cannabinoids Screen Neg (NEG) Urine Ethyl Alcohol Neg (NEG) White Blood Count 10.9 x10^3/uL (4.0-11.0) Red Blood Count 4.75 x10^6/uL (3.50-5.40) Hemoglobin 14.5 g/dL (12.0-15.5) Hematocrit 43.3 % (36.0-47.0) Mean Corpuscular Volume 91 fL (79-100) Mean Corpuscular Hemoglobin 31 pg (25-35) Mean Corpuscular Hemoglobin Concent 33 g/dL (31-37) Red Cell Distribution Width 13.1 % (11.5-14.5) Platelet Count 277 x10^3/uL (140-400) Neutrophils (%) (Auto) 80 % (31-73) H Lymphocytes (%) (Auto) 13 % (24-48) L Monocytes (%) (Auto) 7 % (0-9) Eosinophils (%) (Auto) 0 % (0-3) Basophils (%) (Auto) 0 % (0-3) Neutrophils # (Auto) 8.7 x10^3/uL (1.8-7.7) H Lymphocytes # (Auto) 1.4 x10^3/uL (1.0-4.8) Monocytes # (Auto) 0.8 x10^3/uL (0.0-1.1) Eosinophils # (Auto) 0.0 x10^3/uL (0.0-0.7) Basophils # (Auto) 0.0 x10^3/uL (0.0-0.2) Sodium Level 138 mmol/L (136-145) Potassium Level 4.1 mmol/L (3.5-5.1) Chloride Level 103 mmol/L (98-107) Carbon Dioxide Level 30 mmol/L (21-32) Anion Gap 5 (6-14) L Blood Urea Nitrogen 24 mg/dL (7-20) H Creatinine 1.0 mg/dL (0.6-1.0) Estimated GFR (Cockcroft-Gault) 55.3 BUN/Creatinine Ratio 24 (6-20) H Glucose Level 147 mg/dL (70-99) H Calcium Level 9.1 mg/dL (8.5-10.1) Total Bilirubin 0.3 mg/dL (0.2-1.0) Aspartate Amino Transf (AST/SGOT) 16 U/L (15-37) Alkaline Phosphatase 100 U/L (46-116) Total Protein 7.3 g/dL (6.4-8.2) Albumin 3.0 g/dL (3.4-5.0) L Albumin/Globulin Ratio 0.7 (1.0-1.7) L Urine Collection Type Void Urine Color (Auto) Colorless Urine Turbidity Clear Urine pH (Auto) 6.5 (<5.0-8.0) Urine Specific [place] 1.008 (1.000-1.030) Urine Protein (Auto) Negative mg/dL (Negative) Urine Glucose (Auto)(UA) Negative mg/dL (Negative) Urine Ketones (Auto) Negative mg/dL (Negative) Urine Blood (Auto) Negative (Negative) Urine Nitrite Negative (Negative) Urine Bilirubin (Auto) Negative (Negative) Urine Urobilinogen (Auto) Normal mg/dL (Normal) Urine Leukocyte Esterase (Auto) Negative (Negative) Urine RBC 0 /HPF (0-2) Urine WBC 1-4 /HPF (0-4) Urine Squamous Epithelial Cells Occ /LPF Urine Bacteria 0 /HPF (0-FEW) ASSESSMENT: 1. Hypoxic respiratory failure 2. Bradycardia, asymptomatic overall 3. Chest pain, atypical in nature 4. COPD 5. Morbid obesity PLAN: 1. Plan for outpatient event monitoring. We will plan for outpatient echocard iogram and stress testing. Follow-up in the office. Justicifation of Admission Dx: Justifications for Admission: Justification of Admission Dx: N/A ANALY HERRERA MD Mar 12, 2022 16:07
[2022-03-12 19:44] VITALS: BP 144/66
[2022-03-12 22:54] VITALS: BP 149/63
[2022-03-13 03:11] VITALS: BP 114/73
[2022-03-13 07:00] VITALS: BP 125/64
[2022-03-13] MEDS: IPRATRPIUM/ALBUTEROL 0.5/2.5MG 3 ML NEBU. NEB SCH ×3 (08:00→20:38)
[2022-03-13] MEDS: POLYETHYLENE GLYCOL 3350 17 GM PACKET. PO SCH (08:52)
[2022-03-13] MEDS: ENOXAPARIN 40 MG/0.4 ML SYRINGE. SQ SCH ×2 (08:53→21:31)
[2022-03-13] MEDS: LOSARTAN POTASSIUM 50 MG TABLET. PO SCH (08:53)
[2022-03-13] MEDS: DOCUSATE SODIUM 100 MG CAPSULE. PO SCH ×2 (08:53→21:31)
[2022-03-13] MEDS: ASPIRIN ENTERIC COATED 81 MG TABLET.DR. PO SCH (08:53)
[2022-03-13] MEDS: TRIAMTERENE/HCTZ 37.5/25MG TABLET. PO SCH (08:53)
[2022-03-13] MEDS: NYSTATIN TOPICAL POWDER 15GM BOTTLE. TP SCH ×2 (08:54→21:32)
[2022-03-13] MEDS ORDERED: PANTOPRAZOLE 40 MG TABLET.DR. PO ONE (09:30)
[2022-03-13 11:00] VITALS: BP 125/64
[2022-03-13] MEDS: MAALOX:LIDO:APAP 6:2:1 ORAL SUSPENSION 180 ML BOTTLE. PO PRN ×2 (11:16→16:59)
--- NOTE | 2022-03-13 11:45 | PDOC ---
[employer] PROGRESS NOTE Date of Service DOS: DATE: 03/13/22 TIME: 11:43 Chief Complaint Chief Complaint Suspected sick sinus syndrome Acute COPD Weakness HTN History of Present Illness History of Present Illness 03/13: Afebrile. Work with PT yesterday, recommending SNU with rolling walker. Patient is agreeable to this. Echocardiogram pending. Requesting something to help her sleep at night. 03/12: Patient seen and evaluated. Still complains of intermittent palpitations and weakness. Cardiology consulted for possible SSS. Echocardiogram pending. Per cardiology, will consider mobile cardiac outpatient telemetry. Pulmonology will attempt to provide full facemask for CPAP as outpatient. PT/OT recommendations pending. Vitals/I&O Vitals/I&O: Vital Signs Date Time Temp Pulse Resp B/P (MAP) Pulse Ox O2 Delivery O2 Flow Rate FiO2 03/13/22 08:53 67 125/64 03/13/22 08:00 Nasal Cannula 2.0 03/13/22 07:00 97.4 22 96 97.4 I & O 03/12/22 03/12/22 03/13/22 14:59 22:59 06:59 Intake Total 240 ml 240 ml 0 ml Output Total 150 ml Balance 240 ml 90 ml 0 ml Physical Exam General: Alert, Oriented X3, Cooperative, No acute distress Heart: Regular rate (SR), Normal S1, Normal S2, Other (2/6 systolic murmur to LLS border) Lungs: Clear Abdomen: Soft, No tenderness Extremities: No cyanosis, No edema Skin: No breakdown, No significant lesion Assessment and Plan Assessmemt and Plan Problems Medical Problems: (1) COPD exacerbation Status: Acute (2) Encephalopathy Status: Acute Comment Review of Relevant I have reviewed the following items kimberly (where applicable) has been applied. Medications: Current Medications Medications (Trade) Dose Ordered Sig/Juan Route PRN Reason Start Time Stop Time Status Last Admin Dose Admin Polyethylene Glycol (miraLAX PACKET) 17 gm DAILY PO 03/12/22 14:00 03/13/22 08:52 Pantoprazole Sodium (Protonix) 40 mg 1X ONCE PO 03/13/22 09:30 03/13/22 09:34 DC 03/13/22 10:45 Multi-Ingredient Mouthwash/Gargle (Velvet Glove Oral Susp) 10 ml PRN QID PRN PO MOUTH PAIN 03/13/22 09:30 03/13/22 11:16 Justifications for Admission Other Justification CHRISTY VERDUGO MD March 13, 2022 11:45
[2022-03-13] MEDS: ACETAMINOPHEN 325 MG TABLET. PO PRN (13:55)
[2022-03-13 15:00] VITALS: BP 133/75
[2022-03-13] MEDS ORDERED: BISACODYL 5 MG TABLET.DR. PO PRN (15:00)
[2022-03-13 19:50] VITALS: BP 140/62
[2022-03-13] MEDS: BUDESONIDE 0.5 MG/2 ML NEBU. NEB SCH ×2 (20:38→20:39)
[2022-03-13 22:41] VITALS: BP 169/71
[2022-03-13] MEDS: ALPRAZolam 0.25 MG TABLET PO PRN (23:17)
[2022-03-13] MEDS: ZOLPIDEM 5 MG TABLET. PO PRN (23:17)
[2022-03-14 02:49] VITALS: BP 122/59
[2022-03-14] MEDS: ALPRAZolam 0.25 MG TABLET PO PRN ×2 (05:35→21:13)
[2022-03-14 07:00] VITALS: BP 158/81
[2022-03-14] MEDS: IPRATRPIUM/ALBUTEROL 0.5/2.5MG 3 ML NEBU. NEB SCH ×4 (07:36→21:20)
[2022-03-14] MEDS: BUDESONIDE 0.5 MG/2 ML NEBU. NEB SCH ×2 (07:36→21:21)
[2022-03-14] MEDS: NYSTATIN TOPICAL POWDER 15GM BOTTLE. TP SCH ×2 (07:58→21:00)
[2022-03-14] MEDS: POLYETHYLENE GLYCOL 3350 17 GM PACKET. PO SCH (07:58)
[2022-03-14] MEDS: ASPIRIN ENTERIC COATED 81 MG TABLET.DR. PO SCH (08:00)
[2022-03-14] MEDS: PANTOPRAZOLE 40 MG TABLET.DR. PO SCH (08:00)
[2022-03-14] MEDS: TRIAMTERENE/HCTZ 37.5/25MG TABLET. PO SCH (08:00)
[2022-03-14] MEDS: DOCUSATE SODIUM 100 MG CAPSULE. PO SCH ×2 (08:00→21:13)
[2022-03-14] MEDS: LOSARTAN POTASSIUM 50 MG TABLET. PO SCH (08:01)
[2022-03-14] MEDS: ENOXAPARIN 40 MG/0.4 ML SYRINGE. SQ SCH ×2 (08:01→21:14)
[2022-03-14] MEDS: MAALOX:LIDO:APAP 6:2:1 ORAL SUSPENSION 180 ML BOTTLE. PO PRN (08:37)
--- NOTE | 2022-03-14 10:22 | PDOC ---
ROZ CORRALES APRN 03/14/22 1022: CARDIO Progress Notes Date and Time Date of Service 03/14/22 Time of Evaluation 1015 Subjective Subjective: No Chest Pain, No shortness of breath, No Palpitations Vitals Vitals Vital Signs Date Time Temp Pulse Resp B/P (MAP) Pulse Ox O2 Delivery O2 Flow Rate FiO2 03/14/22 08:01 82 156/81 03/14/22 07:36 Nasal Cannula 2.0 03/14/22 07:00 97.9 20 90 97.9 Weight Weight [ ] Input and Output Intake and Output Intake and Output 03/14/22 07:00 Intake Total 960 ml Output Total 600 ml Balance 360 ml Intake Oral 960 ml Output Urine Total 600 ml # Voids 5 # Bowel Movements 1 Physical Exam HEENT: Neck Supple W Full Motion Chest: Symmetric LUNGS: Other (diminished ) Heart: RRR Abdomen: Soft N/T Extremities: Other (trace pedal edema ) Neurology: alert, oriented, follow commands Assessment Assessment 1. Acute on chronic respiratory failure, COPD 2. Chest pain, atypical: no acute EKG changes, trop nml 3. Palpitations/bradycardia: no arrhythmias as an inpt. SR 4. COPD 5. HTN: controlled 6. Morbid obesity Recommendations Will plan outpatient event monitor, echocardiogram, and stress testing ASA therapy Follow up in our office as scheduled PLAN: 1. Plan for outpatient event monitoring. We will plan for outpatient ech ocardiogram and stress testing. Follow-up in the office. Justicifation of Admission Dx: Justifications for Admission: Justification of Admission Dx: N/A ANALY HERRERA MD 03/15/22 0911: ROZ CORRALES APRN March 14, 2022 10:22 ANALY HERRERA MD March 15, 2022 09:11
--- NOTE | 2022-03-14 10:31 | PDOC ---
PULMONARY PROGRESS NOTES DATE: 03/14/22 TIME: 10:30 Subjective Denies any shortness of breath. Vitals Vital Signs Date Time Temp Pulse Resp B/P (MAP) Pulse Ox O2 Delivery O2 Flow Rate FiO2 03/14/22 08:01 82 156/81 03/14/22 07:36 Nasal Cannula 2.0 03/14/22 07:00 97.9 20 90 97.9 General: Alert, No acute distress Lungs: Clear Cardiovascular: S1, Other Abdomen: Soft Extremities: Other (1+ edema.) Skin: Warm Labs Laboratory Tests Test 03/12/22 10:50 Urine Collection Type Void Urine Color (Auto) Colorless Urine Turbidity Clear Urine pH (Auto) 6.5 (<5.0-8.0) Urine Specific [place] 1.008 (1.000-1.030) Urine Protein (Auto) Negative mg/dL (Negative) Urine Glucose (Auto)(UA) Negative mg/dL (Negative) Urine Ketones (Auto) Negative mg/dL (Negative) Urine Blood (Auto) Negative (Negative) Urine Nitrite Negative (Negative) Urine Bilirubin (Auto) Negative (Negative) Urine Urobilinogen (Auto) Normal mg/dL (Normal) Urine Leukocyte Esterase (Auto) Negative (Negative) Urine RBC 0 /HPF (0-2) Urine WBC 1-4 /HPF (0-4) Urine Squamous Epithelial Cells Occ /LPF Urine Bacteria 0 /HPF (0-FEW) Medications Active Scripts Medications Dose Route/Sig Max Daily Dose Days Date Category Benicar (Olmesartan Medoxomil) 40 Mg Tablet 40 Mg PO DAILY 10/15/19 Reported Ventolin Hfa Inhaler (Albuterol Sulfate) 18 Gm Hfa.aer.ad 2 Puff INH Q4HRS 10/15/19 Reported Maxzide 37.5 Mg-25 Mg Tablet (Triamterene/Hydrochlorothiazid) 1 Each Tablet 1 Tab PO DAILY 06/24/15 Reported Xanax (Alprazolam) 0.25 Mg Tablet 0.25 Mg PO PRN Q6HRS 06/24/15 Reported Advair 250-50 Diskus (Fluticasone/Salmeterol) 1 Each Disk.w.dev 1 Puff IH BID 06/24/15 Reported Impression . 1. Encephalopathy. Seems to have resolved. No obvious hypercapnia. No evidence of any stroke by CT head. Seems to be at her baseline. 2. History of severe obstructive sleep apnea and obesity/hypoventilation syndrome. She is on CPAP at 15 cm water at home, along with oxygen at night and during the day. She needs to have her nasal pillows changed to full face mask since she is mouth breather. 3. Underlying morbid obesity with a BMI of 57.7. 4. No evidence of any abnormality on the CT angiogram. Plan . RECOMMENDATIONS: 1. We will reach out to the patient's [employer] company to provide her full face mask as outpatient. 2. Continue home CPAP at 15 cm water along with oxygen bleed in. 3. DVT prophylaxis with Lovenox. 4. Continue DuoNeb and Pulmicort. 5. From a pulmonary standpoint, she could be discharged. THOMPSON RINCON MD March 14, 2022 10:30
[2022-03-14 10:50] VITALS: BP 123/57
--- NOTE | 2022-03-14 12:38 | NUR ---
SS following up with discharge planning. SS reviewed pt chart and discussed with pt RN. Pt is currently requiring oxygen at two liters nasal canula. PO diet. PT/OT recommended custodial unit. [facility] requesting to go to [facility], ; fax [phone], and [facility], ; fax [phone]. COVID19 PCR test requested for placement. Referrals sent as requested. SS will continue to follow for discharge planning.
--- NOTE | 2022-03-14 13:46 | PDOC ---
[employer] PROGRESS NOTE Date of Service DOS: DATE: 03/14/22 TIME: 13:44 Chief Complaint Chief Complaint Suspected sick sinus syndrome Acute COPD Weakness HTN History of Present Illness History of Present Illness 03/14: Afebrile, breathing on 2 L nasal cannula. PT/OT recommending SNU. Will get COVID-19 swab and PCR for placement. 03/13: Afebrile. Work with PT yesterday, recommending SNU with rolling walker. Patient is agreeable to this. Echocardiogram pending. Requesting something to help her sleep at night. 03/12: Patient seen and evaluated. Still complains of intermittent palpitations and weakness. Cardiology consulted for possible SSS. Echocardiogram pending. Per cardiology, will consider mobile cardiac outpatient telemetry. Pulmonology will attempt to provide full facemask for CPAP as outpatient. PT/OT recommendations pending. Vitals/I&O Vitals/I&O: Vital Signs Date Time Temp Pulse Resp B/P (MAP) Pulse Ox O2 Delivery O2 Flow Rate FiO2 03/14/22 11:22 96 Nasal Cannula 2.0 03/14/22 10:50 97.9 69 20 123/57 (79) 97.9 I & O 03/13/22 03/13/22 03/14/22 15:00 23:00 07:00 Intake Total 480 ml 480 ml 0 ml Output Total 200 ml 400 ml Balance 280 ml 80 ml 0 ml Physical Exam General: Alert, Oriented X3, Cooperative, No acute distress Heart: Regular rate (SR), Normal S1, Normal S2, Other (2/6 systolic murmur to LLS border) Lungs: Clear Abdomen: Soft, No tenderness Extremities: No cyanosis, No edema Skin: No breakdown, No significant lesion Labs Labs: Laboratory Tests Test 03/14/22 12:00 SARS-CoV-2 Antigen (Rapid) Negative (NEGATIVE) Assessment and Plan Assessmemt and Plan Problems Medical Problems: (1) COPD exacerbation Status: Acute (2) Encephalopathy Status: Acute Comment Review of Relevant I have reviewed the following items kimberly (where applicable) has been applied. Medications: Current Medications Medications (Trade) Dose Ordered Sig/Juan Route PRN Reason Start Time Stop Time Status Last Admin Dose Admin Pantoprazole Sodium (Protonix) 40 mg DAILYAC PO 03/14/22 07:30 03/14/22 08:00 Bisacodyl (Dulcolax Tab) 5 mg PRN DAILY PRN PO CONSTIPATION 03/13/22 15:00 03/13/22 16:59 Zolpidem Tartrate (Ambien) 5 mg PRN QHS PRN PO INSOMNIA 03/13/22 16:00 03/13/22 23:17 Justifications for Admission Other Justification CHRISTY VERDUGO MD March 14, 2022 13:46
[2022-03-14 14:55] VITALS: BP 133/60
[2022-03-14 19:00] VITALS: BP 143/62
[2022-03-14] MEDS: ZOLPIDEM 5 MG TABLET. PO PRN (21:13)
[2022-03-14 22:33] VITALS: BP 168/84
[2022-03-15] MEDS: ACETAMINOPHEN 325 MG TABLET. PO PRN (00:23)
[2022-03-15 02:29] VITALS: BP 154/74
[2022-03-15 07:00] VITALS: BP 155/77
[2022-03-15] MEDS: BUDESONIDE 0.5 MG/2 ML NEBU. NEB SCH (07:45)
[2022-03-15] MEDS: IPRATRPIUM/ALBUTEROL 0.5/2.5MG 3 ML NEBU. NEB SCH ×3 (07:45→15:21)
[2022-03-15] MEDS: ASPIRIN ENTERIC COATED 81 MG TABLET.DR. PO SCH (07:57)
[2022-03-15] MEDS: PANTOPRAZOLE 40 MG TABLET.DR. PO SCH (07:57)
--- NOTE | 2022-03-15 09:28 | PDOC ---
ROZ CORRALES APRN 03/15/22 0928: CARDIO Progress Notes Date and Time Date of Service 03/15/22 Time of Evaluation 1310 Subjective Subjective: No Chest Pain, No shortness of breath, No Palpitations Vitals Vitals Vital Signs Date Time Temp Pulse Resp B/P (MAP) Pulse Ox O2 Delivery O2 Flow Rate FiO2 03/15/22 08:05 Nasal Cannula 2.0 03/15/22 07:46 95 03/15/22 07:00 97.9 86 21 155/77 (103) 97.9 Weight Weight [ ] Input and Output Intake and Output Intake and Output 03/15/22 07:00 Intake Total 1720 ml Output Total 1500 ml Balance 220 ml Intake Oral 1720 ml Output Urine Total 1500 ml # Bowel Movements 1 Laboratory Labs Laboratory Tests Test 03/14/22 12:00 Coronavirus (COVID-19)(PCR) Not detected (NOT DETECTD) SARS-CoV-2 Antigen (Rapid) Negative (NEGATIVE) Physical Exam HEENT: Neck Supple W Full Motion Chest: Symmetric LUNGS: Other (diminished ) Heart: RRR Abdomen: Soft N/T Extremities: Other (trace pedal edema ) Neurology: alert, oriented, follow commands Assessment Assessment 1. Acute on chronic respiratory failure, COPD 2. Chest pain, atypical: no acute EKG changes, trop nml 3. Palpitations/bradycardia: no arrhythmias as an inpt. SR 4. COPD 5. HTN: controlled 6. Morbid obesity Recommendations Outpatient event monitor, echocardiogram, and stress testing as arranged ASA therapy Follow up in our office as scheduled Justicifation of Admission Dx: Justifications for Admission: Justification of Admission Dx: N/A ANALY HERRERA MD 03/15/22 1458: CARDIO Progress Notes Plan Plan The patient was seen and interviewed as well as examined at the bedside. The chart was reviewed. The case was discussed. Agree with the plan of care. ROZ CORRALES APRN March 15, 2022 09:28 ANALY HERRERA MD March 15, 2022 14:58
[2022-03-15] MEDS: TRIAMTERENE/HCTZ 37.5/25MG TABLET. PO SCH (10:07)
[2022-03-15] MEDS: POLYETHYLENE GLYCOL 3350 17 GM PACKET. PO SCH (10:08)
[2022-03-15] MEDS: LOSARTAN POTASSIUM 50 MG TABLET. PO SCH (10:08)
[2022-03-15] MEDS: ENOXAPARIN 40 MG/0.4 ML SYRINGE. SQ SCH (10:08)
[2022-03-15] MEDS: DOCUSATE SODIUM 100 MG CAPSULE. PO SCH (10:08)
[2022-03-15] MEDS: NYSTATIN TOPICAL POWDER 15GM BOTTLE. TP SCH (10:09)
[2022-03-15 10:45] VITALS: BP 129/84
--- NOTE | 2022-03-15 10:49 | PDOC ---
[employer] PROGRESS NOTE Date of Service DOS: DATE: 03/15/22 TIME: 10:46 Chief Complaint Chief Complaint Suspected sick sinus syndrome Acute COPD Weakness HTN History of Present Illness History of Present Illness 03/15: Patient seen and evaluated. She has no complaints today. Denies chest pain or nausea. She will discharge today to SNU. Greater than 30 minutes spent managing discharge this patient. 03/14: Afebrile, breathing on 2 L nasal cannula. PT/OT recommending SNU. Will get COVID-19 swab and PCR for placement. 03/13: Afebrile. Work with PT yesterday, recommending SNU with rolling walker. Patient is agreeable to this. Echocardiogram pending. Requesting something to help her sleep at night. 03/12: Patient seen and evaluated. Still complains of intermittent palpitations and weakness. Cardiology consulted for possible SSS. Echocardiogram pending. Per cardiology, will consider mobile cardiac outpatient telemetry. Pulmonology will attempt to provide full facemask for CPAP as outpatient. PT/OT recommendations pending. Vitals/I&O Vitals/I&O: Vital Signs Date Time Temp Pulse Resp B/P (MAP) Pulse Ox O2 Delivery O2 Flow Rate FiO2 03/15/22 10:45 98.4 84 21 129/84 (99) 94 Nasal Cannula 2.0 98.4 I & O 03/14/22 03/14/22 03/15/22 14:59 22:59 06:59 Intake Total 1180 ml 540 ml Output Total 1000 ml 500 ml Balance 1180 ml -460 ml -500 ml Physical Exam General: Alert, Oriented X3, Cooperative, No acute distress Heart: Regular rate (SR), Normal S1, Normal S2, Other (2/6 systolic murmur to LLS border) Lungs: Clear Abdomen: Soft, No tenderness Extremities: No cyanosis, No edema Skin: No breakdown, No significant lesion Labs Labs: Laboratory Tests Test 03/14/22 12:00 Coronavirus (COVID-19)(PCR) Not detected (NOT DETECTD) SARS-CoV-2 Antigen (Rapid) Negative (NEGATIVE) Assessment and Plan Assessmemt and Plan Problems Medical Problems: (1) COPD exacerbation Status: Acute (2) Encephalopathy Status: Acute Comment Review of Relevant I have reviewed the following items kimberly (where applicable) has been applied. Justifications for Admission Other Justification CHRISTY VERDUGO MD March 15, 2022 10:49
--- NOTE | 2022-03-15 10:52 | PDOC3 ---
Discharge Summary Visit Information Date of Admission: Mar 11, 2022 Date of Discharge: March 15, 2022 Final Diagnosis Problems Medical Problems: (1) COPD exacerbation Status: Acute (2) Encephalopathy Status: Acute Brief Hospital Course Allergies Allergies Coded Allergies Type Severity Reaction Last Updated Verified No Known Drug Allergies 03/10/22 No Vital Signs Vital Signs Date Time Temp Pulse Resp B/P (MAP) Pulse Ox O2 Delivery O2 Flow Rate FiO2 03/15/22 10:45 98.4 84 21 129/84 (99) 94 Nasal Cannula 2.0 98.4 Lab Results Laboratory Tests Test 03/14/22 12:00 Coronavirus (COVID-19)(PCR) Not detected (NOT DETECTD) SARS-CoV-2 Antigen (Rapid) Negative (NEGATIVE) Laboratory Tests Test 03/14/22 12:00 Coronavirus (COVID-19)(PCR) Not detected (NOT DETECTD) SARS-CoV-2 Antigen (Rapid) Negative (NEGATIVE) Brief Hospital Course Ms. Rg is a 66 old female who presented with acute COPD, weakness, suspected SSS. Consultation was placed to cardiology and will consider mobile cardiac outpatient telemetry. Consultation placed to pulmonology for COPD, and pulmonology will attempt to provide full facemask for CPAP as outpatient. PT/OT recommending SNU, and once accepted she was stable for discharge to rehab facility. Discharge Information Condition at Discharge: Stable Disposition/Orders: D/C to Another Facility Scheduled Albuterol Sulfate (Ventolin Hfa Inhaler) 18 Gm Hfa.aer.ad, 2 PUFF INH Q4HRS for FOR ASTHMA, Ref 0 (Reported) Entered as Reported by: ADRIANA LUCIO on 10/15/192229 Last Action: Reviewed on 03/11/22631 by Janine Richey Alprazolam (Xanax) 0.25 Mg Tablet, 0.25 MG PO PRN Q6HRS for ANXIETY / AGITATION, (Reported) Entered as Reported by: ERNA MALHOTRA on 06/24/15599 Last Action: Continued on 03/11/22 1323 by NISHA GRANT Fluticasone/Salmeterol (Advair 250-50 Diskus) 1 Each Disk.w.dev, 1 PUFF IH BID, (Reported) Entered as Reported by: ERNA MALHOTRA on 06/24/15599 Last Action: Reviewed on 03/11/22631 by Janine Richey Olmesartan Medoxomil (Benicar) 40 Mg Tablet, 40 MG PO DAILY for HYPERTENSION, (Reported) Entered as Reported by: ADRIANA LUCIO on 10/15/192229 Last Action: Converted on 03/11/221322 by NISHA GRANT Triamterene/Hydrochlorothiazid (Maxzide 37.5 Mg-25 Mg Tablet) 1 Each Tablet, 1 TAB PO DAILY, (Reported) Entered as Reported by: ERNA MALHOTRA on 06/24/15 0600 Last Action: Continued on 03/11/221322 by NISHA GRANT Justicifation of Admission Dx: Justifications for Admission: Justification of Admission Dx: N/A CHRISTY VERDUGO MD March 15, 2022 10:52
[2022-03-15] MEDS ORDERED: ASPI-886 PO (10:54)
--- NOTE | 2022-03-15 10:55 | PDOC ---
PULMONARY PROGRESS NOTES DATE: 03/15/22 TIME: 10:55 Subjective Denies any shortness of breath. Vitals Vital Signs Date Time Temp Pulse Resp B/P (MAP) Pulse Ox O2 Delivery O2 Flow Rate FiO2 03/15/22 10:45 98.4 84 21 129/84 (99) 94 Nasal Cannula 2.0 98.4 General: Alert, No acute distress Lungs: Clear Cardiovascular: S1, Other Abdomen: Soft Extremities: Other (1+ edema.) Skin: Warm Labs Laboratory Tests Test 03/14/22 12:00 Coronavirus (COVID-19)(PCR) Not detected (NOT DETECTD) SARS-CoV-2 Antigen (Rapid) Negative (NEGATIVE) Laboratory Tests Test 03/14/22 12:00 Coronavirus (COVID-19)(PCR) Not detected (NOT DETECTD) SARS-CoV-2 Antigen (Rapid) Negative (NEGATIVE) Medications Active Scripts Medications Dose Route/Sig Max Daily Dose Days Date Category Benicar (Olmesartan Medoxomil) 40 Mg Tablet 40 Mg PO DAILY 10/15/19 Reported Ventolin Hfa Inhaler (Albuterol Sulfate) 18 Gm Hfa.aer.ad 2 Puff INH Q4HRS 10/15/19 Reported Maxzide 37.5 Mg-25 Mg Tablet (Triamterene/Hydrochlorothiazid) 1 Each Tablet 1 Tab PO DAILY 06/24/15 Reported Xanax (Alprazolam) 0.25 Mg Tablet 0.25 Mg PO PRN Q6HRS 06/24/15 Reported Advair 250-50 Diskus (Fluticasone/Salmeterol) 1 Each Disk.w.dev 1 Puff IH BID 06/24/15 Reported Impression . 1. Encephalopathy. Seems to have resolved. No obvious hypercapnia. No evidence of any stroke by CT head. Seems to be at her baseline. 2. History of severe obstructive sleep apnea and obesity/hypoventilation syndrome. She is on CPAP at 15 cm water at home, along with oxygen at night and during the day. She needs to have her nasal pillows changed to full face mask since she is mouth breather. 3. Underlying morbid obesity with a BMI of 57.7. 4. No evidence of any abnormality on the CT angiogram. Plan . Updated 03/15 Patient ready for discharge home today Call the office to assist with [employer] Follow-up in the office as instructed to do so 03/14 RECOMMENDATIONS: 1. We will reach out to the patient's DME company to provide her full face mask as outpatient. 2. Continue home CPAP at 15 cm water along with oxygen bleed in. 3. DVT prophylaxis with Lovenox. 4. Continue DuoNeb and Pulmicort. 5. From a pulmonary standpoint, she could be discharged. CON HWANG MD March 15, 2022 10:55
--- NOTE | 2022-03-15 10:56 | SNU/HH DC ---
DISCHARGE ORDERS DISCHARGE INFORMATION: DISCHARGE DATE: March 15, 2022 FINAL DIAGNOSIS Problems Medical Problems: (1) COPD exacerbation Status: Acute (2) Encephalopathy Status: Acute CONDITION ON DISCHARGE: Stable CODE STATUS: Code Status: Full SENIOR CARE: SNF STAY <30 DAYS: Yes POST DISCHARGE ORDERS: ACTIVITY ORDERS: Activity as tolerated WEIGHT BEARING STATUS: No restrictions, As tolerated DIET AFTER DISCHARGE: Cardiac CHECKS AFTER DISCHARGE: CHECKS AFTER DISCHARGE: Check blood press - daily TREATMENT/EQUIPMENT ORDERS: ADAPTIVE EQUIPMENT NEEDED: None, Front wheeled walker RESPIRATORY EQUIPMENT NEEDED: Oxygen Physical Therapy For: Evalulation/Treatment Occupational Therapy For: Evaluation/Treatment DISCHARGE MEDICATIONS: Home Meds Reported Medications Olmesartan Medoxomil (BENICAR) 40 Mg Tablet, 40 MG PO DAILY for HYPERTENSION, TAB 10/15/19 Albuterol Sulfate (VENTOLIN HFA INHALER) 18 Gm Hfa.aer.ad, 2 PUFF INH Q4HRS for FOR ASTHMA, INHALER 0 Refills 10/15/19 Triamterene/Hydrochlorothiazid (MAXZIDE 37.5 MG-25 MG TABLET) 1 Each Tablet, 1 TAB PO DAILY 06/24/15 Alprazolam (XANAX) 0.25 Mg Tablet, 0.25 MG PO PRN Q6HRS for ANXIETY / AGITATION 06/24/15 Fluticasone/Salmeterol (ADVAIR 250-50 DISKUS) 1 Each Disk.w.dev, 1 PUFF IH BID 06/24/15 CHRISTY VERDUGO MD March 15, 2022 10:56
--- NOTE | 2022-03-15 13:45 | NUR ---
SS following up with discharge planning. SS reviewed pt chart and discussed with pt RN. Pt is currently requiring oxygen at two liters nasal canula. COVID19 negative. Pt is currently requiring oxygen at two liters nasal canula. COVID19 negative. PT/OT recommended longterm unit. Pt accepted at [facility], ; fax [phone]. Discharge orders received and sent to [facility]. Pt will discharge today and go to [facility] and [facility]. [place] to provide transportation. Pt and pt's RN notified.
[2022-03-15 15:00] VITALS: BP 151/67
--- NOTE | 2022-03-15 16:17 | NUR ---
This RN attempted to call report to Jonathan Culp at [phone] with no answer. Will attempt to call again at a later time. Addendum: 03/15/22 at 1630 by SHERRIE MELVIN RN This RN attempted to call report again with no answer. This RN then called and spoke with Randal, ultrasound coordinator at [phone] who stated he would give staff the floor number [phone] for them to call this RN for report.
--- NOTE | 2022-03-15 16:35 | NUR ---
Pt left unit at 1635 by wheelchair via transportation. Pt's IV removed without complication, VSS. Discharge paperwork sent with pt at time of discharge. Addendum: 03/15/22 at 1640 by SHERRIE MELVIN RN Pt's friend, Alison accompanied pt on discharge.
--- NOTE | 2022-03-15 16:41 | NUR ---
Third attempt to call report by this RN with no answer. Will await Jonathan Culp's call. Pt discharged.
== END 2022-03-15 16:43 | DRG 189 ==
LOC: ER 18:57 → 6 SOUTH 23:15
PROVIDERS: ADMIT Internal Medicine; ATTEND Internal Medicine
PROC: 5A09357 Assistance with Respiratory Ventilation, Less than 24 Consecutive Hours, Continuous Positive Airway Pressure (ICD-10-PCS; principal; 2022-03-14)
DX: J96.21 Acute and chronic respiratory failure with hypoxia (principal); J44.1 Chronic obstructive pulmonary disease with (acute) exacerbation; G93.40 Encephalopathy, unspecified; Z68.43 Body mass index [BMI] 50.0-59.9, adult; I49.5 Sick sinus syndrome; E66.01 Morbid (severe) obesity due to excess calories; E78.00 Pure hypercholesterolemia, unspecified; E78.5 Hyperlipidemia, unspecified; F41.9 Anxiety disorder, unspecified; I11.0 Hypertensive heart disease with heart failure; I50.9 Heart failure, unspecified; K80.20 Calculus of gallbladder without cholecystitis without obstruction; Z79.51 Long term (current) use of inhaled steroids; Z79.899 Other long term (current) drug therapy; Z82.49 Family history of ischemic heart disease and other diseases of the circulatory system; Z87.891 Personal history of nicotine dependence; Z90.710 Acquired absence of both cervix and uterus; K21.9 Gastro-esophageal reflux disease without esophagitis; K57.90 Diverticulosis of intestine, part unspecified, without perforation or abscess without bleeding; Z20.822 Contact with and (suspected) exposure to COVID-19; Z90.49 Acquired absence of other specified parts of digestive tract; Z60.2 Problems related to living alone; R07.89 Other chest pain
CPT/HCPCS: 36415; 36600; 70450; 71045; 71275; 80053; 80061; 80307; 81001; 82140; 82805; 83880; 84443; 84484; 85025; 87426; 93005; 93308; 94640; 94660; 94760; 96374; G0480; J1650; J2930; U0003; 97110-GP; 97116-GP; 97530-GO; 97535-GO; 99285-25; G0378; J7613; J7626

== ENCOUNTER → 2022-03-30 | Outpatient (CLI) | payer MEDICARE ==
[2022-03-15 15:00] VITALS: BP 151/67
[~2022-03-30] MED LIST changes: +ASPI-886 PO
--- NOTE | 2022-03-30 12:21 | CARD ---
MR#: [id number] Date of Study: 03/30/2022 Ordering Physician: GAY MARIE, Referring Physician: GAY MARIE, Tech: Naresh Fung [facility] APPROVED REPORT EXAM: Two-dimensional and M-mode echocardiogram with Doppler and color Doppler. Other Information Quality : FairHR: 55bpm Rhythm : Bradycardia INDICATION Chest Pain RISK FACTORS Hypertension Obesity Hyperlipidemia Diabetes 2D DIMENSIONS Left Atrium(2D)4.3 (1.6-4.0cm)IVSd1.0 (0.7-1.1cm) Aortic Root(2D)3.2 (2.0-3.7cm)LVDd4.7 (3.9-5.9cm) LVOT Diameter2.1 (1.8-2.4cm)PWd1.0 (0.7-1.1cm) LA Rmrgeg38 (18-58mL)LVDs2.9 (2.5-4.0cm) FS (%) 39.4 %SV71.9 ml LVEF(%)69.9 (>50%) Aortic Valve AoV Peak Paul.147.9cm/sAoV VTI34.8cm AO Peak GR.8.7mmHgLVOT Peak Paul.118.1cm/s LVOT VTI 29.25cmAO Mean GR.5mmHg WILLIAM (VMAX)1.40sm8ZEH (VTI)2.84cm2 Mitral Valve MV E Fluugnky201.2cm/sMV DECEL VMUV122ik MV A Hathavqh491.9cm/sMV IHS49xk E/A Ratio1.1MVA (PHT)3.31cm2 TDI E/Lateral E'13.3E/Medial E'15.4 Pulmonary Valve PV Peak Ympjasbd316.4cm/sPV Peak Grad.5mmHg Tricuspid Valve TR P. Bdffupmq991ny/sTR Peak Gr.24mmHg Pulmonary Vein S1 Pmydpmfk96.4cm/sD2 Onhsqiip21.1cm/s LEFT VENTRICLE The left ventricle is normal size. There is normal left ventricular wall thickness. The left ventricu lar systolic function is normal. The ejection fraction is 55-60%. There is normal LV segmental wall m otion. Transmitral Doppler flow pattern is Grade II-pseudonormal filling dynamics. No left ventricle thrombus noted on this study. There is no ventricular septal defect visualized. There is no left vent ricular aneurysm. There is no mass noted in the left ventricle. RIGHT VENTRICLE The right ventricle is normal size. There is normal right ventricular wall thickness. The right ventr icular systolic function is normal. ATRIA The left atrium is mildly dilated. The right atrium size is normal. The interatrial septum is intact with no evidence for an atrial septal defect or patent foramen ovale as noted on 2-D or Doppler imagi ng. AORTIC VALVE The aortic valve is normal in structure and function. Doppler and Color Flow revealed no significant aortic regurgitation. There is no significant aortic valvular stenosis. There is no aortic valvular v egetation. MITRAL VALVE The mitral valve is normal in structure and function. There is no evidence of mitral valve prolapse. There is no mitral valve stenosis. Doppler and Color Flow revealed no mitral valve regurgitation note d. TRICUSPID VALVE The tricuspid valve is normal in structure and function. Doppler and Color Flow revealed trace tricus pid regurgitation. The PA pressure was estimated at 30 mmHg. There is no tricuspid valve prolapse or vegetation. There is no tricuspid valve stenosis. PULMONIC VALVE The pulmonary valve is normal in structure and function. Doppler and Color Flow revealed no pulmonic valvular regurgitation. There is no pulmonic valvular stenosis. GREAT VESSELS The aortic root is normal in size. The ascending aorta is normal in size. The pulmonary artery is nor mal. The IVC is normal in size and collapses >50% with inspiration. PERICARDIAL EFFUSION There is no pleural effusion. There is no evidence of significant pericardial effusion. Critical Notification Critical Value: No <Conclusion> The left ventricular systolic function is normal. The ejection fraction is 55-60%. There is normal LV segmental wall motion. Trace tricuspid regurgitation. The PA pressure was estimated at 30 mmHg. There is no evidence of significant pericardial effusion. Signed by : Sandro Guerrero, Electronically Approved : 03/30/2022 12:20:49
== END ==
LOC: ECHO 08:25
PROVIDERS: ATTEND Internal Medicine Cardiovascular Disease
DX: R07.9 Chest pain, unspecified (principal)
CPT/HCPCS: 93306; C8929